=== PATIENT | male | born 1945 | race Two or more races ===

== ENCOUNTER 2023-07-04 10:29 | Outpatient (REF) | payer OTHER, SELFPAY ==
[2023-07-04 14:17] LABS: MANUAL DIFF FLAG NO
[2023-07-04 14:27] LABS: Basophils Percent Auto 0.6 % (0-2); Eosinophils Absolute Auto 0.1 X10*3/uL (0.0-0.4); Hematocrit 40.7 % (42.0-52.0); Hemoglobin 13.3 g/dl (14.0-18.0); Imm Gran Abs Auto 0.02 X10*3/uL (0.00-0.03); Imm Gran Pct Auto 0.3 % (0.0-0.4); Lymphocytes Percent Auto 31.2 % (20-40); Mean Corpuscular HGB Conc 32.7 g/dl (31.0-36.0); Mean Corpuscular Hemoglobin 27.5 pg (27.0-33.0); Mean Corpuscular Volume 84.1 fL (80.0-98.0); Mean Platelet Volume 13.8 fL (9.4-12.4); Monocytes Absolute Auto 0.7 X10*3/uL (0.1-1.2); Monocytes Percent Auto 10.7 % (2-11); Neutrophils Absolute Auto 3.6 x10*3/uL (2.0-8.3); Neutrophils Percent Auto 55.2 % (45-73); Platelet Count 172 X10*3/uL (160-400); Red Blood Count 4.84 X10*6/uL (4.60-5.80); Red Cell Distribution Width 13.8 % (11.0-16.0); White Blood Count 6.5 X10*3/uL (4.8-10.8)
[2023-07-04 14:37] LABS: Creatinine Urine 224.84 mg/dL; Microalbum/Creatinine Ratio Ur 7.5 ug/mg cr
[2023-07-04 14:45] LABS: Alanine Aminotransferase 17 U/L (0-40); Albumin Level 4.4 g/dL (3.5-5.0); Alkaline Phosphatase 53 U/L (39-117); Anion Gap 12 (12-20); Aspartate Amino Transferase 23 U/L (5-37); Bilirubin Total 0.5 mg/dL (0.0-1.0); Blood Urea Nitrogen 12 mg/dL (9-16); Calcium 9.9 mg/dL (8.4-10.2); Carbon Dioxide 30 mmol/L (22-29); Chloride 102 mmol/L (96-108); Estimated Glomerular Filt Rate > 60; Glucose Fasting 127 mg/dL (60-99); Potassium 4.2 mmol/L (3.3-5.1); Sodium 140 mmol/L (135-145); Total Protein 8.3 g/dL (6.5-8.0)
== END 2023-07-04 10:30 | disposition home or self-care (01) ==
LOC: HO.CHCLDS 10:29
PROVIDERS: Visit Provider Internal Medicine
DX: E11.65 Type 2 diabetes mellitus with hyperglycemia (principal)
CPT/HCPCS: 36415; 80053; 82043; 84443; 85025

== ENCOUNTER 2024-01-23 13:18 | Outpatient (REF) | payer OTHER, SELFPAY ==
[2024-01-23 14:42] LABS: Microalbum/Creatinine Ratio Ur 12.7 ug/mg cr (<30)
[2024-01-23 14:56] LABS: Alanine Aminotransferase 16 U/L (0-40); Albumin Level 4.3 g/dL (3.5-5.0); Alkaline Phosphatase 57 U/L (39-117); Anion Gap 12 (12-20); Aspartate Amino Transferase 22 U/L (5-37); Bilirubin Total 0.4 mg/dL (0.0-1.0); Blood Urea Nitrogen 12 mg/dL (9-16); Calcium 9.4 mg/dL (8.4-10.2); Carbon Dioxide 28 mmol/L (22-29); Chloride 99 mmol/L (96-108); Cholesterol 174 mg/dL (<200); Estimated Glomerular Filt Rate > 60; Glucose Random 197 mg/dL (60-115); HDL Cholesterol 33 mg/dL (>40); LDL Cholesterol Calculated 69 mg/dL (<100); Potassium 3.5 mmol/L (3.3-5.1); Sodium 135 mmol/L (135-145); Total Protein 8.2 g/dL (6.5-8.0); Triglycerides 364 mg/dL (<150)
[2024-01-23 15:04] LABS: TSH reflex Free T4 1.46 uIU/mL (0.32-4.0)
[2024-01-24 08:57] LABS: ~HepC Num1 0.09 S/CO (0.00-0.79); ~Hepatitis C Antibody Nonreactive (Nonreactive)
== END 2024-01-23 13:19 | disposition home or self-care (01) ==
LOC: HO.CHCLDS 13:18
PROVIDERS: Visit Provider Internal Medicine
DX: I10 Essential (primary) hypertension (principal); E11.65 Type 2 diabetes mellitus with hyperglycemia
CPT/HCPCS: 36415; 80053; 80061; 82043; 82570; 84443; 86803

== ENCOUNTER 2024-08-19 11:27 | Outpatient (REF) | payer OTHER, SELFPAY ==
[2024-08-19 14:50] LABS: Appearance Urine Clear; Color Urine Yellow; Glucose Urine UA >=1000 mg/dL (Negative); Leukocyte Esterase Urine Negative (Negative); Nitrite Urine Negative (Negative); Specific Gravity - Urine 1.025 (1.005-1.025); UMIC TRIGGER UA YES; Urine Blood Negative (Negative); Urine Ketones Negative (Negative); Urine Protein Negative (Neg-Trace)
[2024-08-19 14:53] LABS: Bacteria Urine None Seen (None Seen); Hyaline Casts Urine 0-2 /LPF (0-2); RBC Urine 0-2 /HPF (0-2); Squamous Epithelial Cell Urine 0-2 /HPF (0-2); WBC Urine 0-5 /HPF (0-5)
[2024-08-19 15:03] LABS: Alanine Aminotransferase 15 U/L (0-40); Albumin Level 4.2 g/dL (3.5-5.0); Alkaline Phosphatase 56 U/L (39-117); Anion Gap 12 (12-20); Aspartate Amino Transferase 18 U/L (5-37); Bilirubin Total 0.4 mg/dL (0.0-1.0); Blood Urea Nitrogen 11 mg/dL (9-16); Calcium 9.3 mg/dL (8.4-10.2); Carbon Dioxide 27 mmol/L (22-29); Chloride 104 mmol/L (96-108); Estimated Glomerular Filt Rate > 60; Glucose Random 203 mg/dL (60-115); Potassium 4.1 mmol/L (3.3-5.1); Sodium 139 mmol/L (135-145); Total Protein 7.9 g/dL (6.5-8.0)
== END 2024-08-19 11:28 | disposition home or self-care (01) ==
LOC: HO.CHCLDS 11:27
PROVIDERS: Visit Provider Internal Medicine
DX: R29.898 Other symptoms and signs involving the musculoskeletal system (principal); M79.89 Other specified soft tissue disorders
CPT/HCPCS: 36415; 80053; 81001; 83735

== ENCOUNTER 2024-11-23 10:16 | Outpatient (REF) | payer OTHER, SELFPAY ==
[2024-11-23 16:01] LABS: Alanine Aminotransferase 22 U/L (0-40); Albumin Level 4.3 g/dL (3.5-5.0); Anion Gap 13 (12-20); Aspartate Amino Transferase 33 U/L (5-37); Bilirubin Total 0.4 mg/dL (0.0-1.0); Blood Urea Nitrogen 15 mg/dL (9-16); Calcium 9.8 mg/dL (8.4-10.2); Carbon Dioxide 28 mmol/L (22-29); Chloride 101 mmol/L (96-108); Cholesterol 209 mg/dL (<200); Estimated Glomerular Filt Rate > 60; Glucose Random 191 mg/dL (60-115); HDL Cholesterol 36 mg/dL (>40); LDL Cholesterol Calculated 119 mg/dL (<100); Potassium 4.1 mmol/L (3.3-5.1); Sodium 138 mmol/L (135-145); TSH reflex Free T4 3.01 uIU/mL (0.32-4.0); Total Protein 8.5 g/dL (6.5-8.0); Triglycerides 270 mg/dL (<150)
[2024-11-23 16:19] LABS: Alkaline Phosphatase 58 U/L (39-117)
== END 2024-11-23 10:17 | disposition home or self-care (01) ==
LOC: HO.CHCLDS 10:16
PROVIDERS: Visit Provider Internal Medicine
DX: E78.1 Pure hyperglyceridemia (principal); E11.65 Type 2 diabetes mellitus with hyperglycemia; I10 Essential (primary) hypertension
CPT/HCPCS: 36415; 80053; 80061; 84443

== ENCOUNTER 2025-01-26 13:16 | Outpatient (REF) | payer OTHER, SELFPAY ==
[2025-01-26 14:44] LABS: Alanine Aminotransferase 21 U/L (0-40); Albumin Level 4.1 g/dL (3.5-5.0); Alkaline Phosphatase 49 U/L (39-117); Aspartate Amino Transferase 36 U/L (5-37); Bilirubin Direct 0.1 mg/dL (0.0-0.5); Bilirubin Total 0.4 mg/dL (0.0-1.0); Cholesterol 139 mg/dL (<200); HDL Cholesterol 32 mg/dL (>40); LDL Cholesterol Calculated 66 mg/dL (<100); Total Protein 8.3 g/dL (6.5-8.0); Triglycerides 206 mg/dL (<150)
[2025-01-26 15:39] LABS: Creatinine Urine 148.99 mg/dL; Microalbum/Creatinine Ratio Ur 7.3 ug/mg cr (<30)
--- OUTSIDE RECORDS SUMMARY | 2025-01-26 16:04 | XMS_ITS | Encounter Summary ---
Author Organization [employer] Address [address] [facility] 7 [place] [address] Care Team Providers Care Oracle Manufacturing Consultant Name Role Phone Fide Watson MD Primary Care Provider [phone] Adriana Allen PharmD Unavailable [phone] Reason for Visit * Reason Comments Med Refill Encounter Details Date Type Department Care Team ([facility] st Contact Info) Description 12/30/2024 Refill [facility] [address] [place] [address] Fide Watson MD [address] [place] [address] Social History Tobacco Use Types Packs/Day Years Used Date Smoking Tobacco: Never Passive Smoke Exposure: Never Smokeless Tobacco: Never Alcohol Use Standard Drinks/Week Comments Never 0 (1 standard drink = 0.6 oz pur e alcohol) Depression Answer Date Recorded Patient Health Questionnaire-9 Score 0 11/23/2024 Patient Health Questionnaire-9 Score 0 11/23/2024 Last PHQ-9: Questionnaire Data Not on file 0 11/23/2024 Housing Stability Answer Date Recorded What is your housing situation today? I have rocky pinon 11/13/[address] you li ve. Do you have problems with any of the following? None of the above 11/13/2024 Food Insecurity Answer Date Recorded Within the past 12 months, y ou worried that your food would run out before you got money to buy more: Never True 11/13/2024 Within the past 12 months,th e food you bought just didn't last and you didn't have enough money to get more: Never True Transportation Answer Date Recorded In the past 12 months, has l ack of transportation kept you from medical appts, meetings, work or from getting things needed for daily living? No 11/13/2024 Utilities Answer Date Recorded In the past 12 months, has t he electric, gas, oil or water company threatened to shut off services in your home? No 11/13/2024 Depression Answer Date Recorded Patient Health Questionnaire-2 Score 0 11/23/2024 Internet Access Answer Date Recorded Internet Access Q1 Yes 11/13/2024 Internet Access Q2 Not on file 11/13/2024 Sex and Gender Information Value Date Recorded Sex Assigned at Male 09/17/2022 10:37 AM EDT Legal Sex Male 10:37 AM EDT Gender Identity Choose not to disclose 10:37 AM EDT Sexual Orientation Choose not to disclose 2021 10:37 AM EDT documented as of this encounter Plan of Treatment Upcoming Encounters Date Type Department Care Team (Late st Contact Info) Description 02/18/2025 11:00 AM EDT Medication Management [facility] MED & PEDS [address] [place] [address] Adriana Allen PharmD [address] [place] [address] 03/29/2025 11:30 AM EDT Office Visit [facility] [address] [place] [address] Fide Watson MD [address] [place] [address] documented as of this encounter Visit Diagnoses Not on filedocumented in this encounter Additional Health Concerns Assessment Noted Time PHQ-9 Depression Total Score: 0 11/23/19 25 9:24 AM EST documented as of this encounter Care Teams Oracle Manufacturing Consultant Relationship Specialty Start Date End Date Fide Watson MD [address] [place] [address] PCP - General Internal Medicine 04/27/20 Adriana Allen PharmD [address] [place] [address] Pharmacist Internal Medicine 12/17/24 documented as of this encounter
--- OUTSIDE RECORDS SUMMARY | 2025-01-26 16:04 | XMS_ITS | Encounter Summary ---
Author Organization [employer] Address 75 [facility] 7 [place] [address] Care Team Providers Care Inspector Machine Cut Glass Name Role Phone Fide Watson MD Primary Care Provider [phone] Adriana Allen PharmD Unavailable [phone] Encounter Details Date Type Department Care Team (Late st Contact Info) Description 01/26/2025 Orders Only [facility] MED & PEDS [address] [place], [place] [phone] Fide Watson MD 505 [place] [address] Social History Tobacco Use Types Packs/Day Years [...] Upcoming Encounters Date Type Department Care Team ([facility] st Contact Info) Description 02/18/2025 11:00 AM EDT Medication Management [facility] MED & PEDS [address] [place] [address] Adriana Allen PharmD [address] [place] [address] 03/29/2025 11:30 AM EDT Office Visit [facility] [address] [place] [address] Fide Watson MD [address] [place] [address] documented as of this encounter Procedures Procedure Name Priority Date/Time Associated Diagnosis Comments ALBUMIN, RANDOM URINE W/CREATININE Routine 01/26/2025 1:20 PM EDT HEPATIC FUNCTION PANEL Routine 01/26/2025 1:17 PM EDT LIPID PANEL, STANDARD Routine 01/26/2025 1:17 PM EDT documented in this encounter Results * Albumin, Random Urine W/Creatinine (01/26/2025 1:20 PM EDT) Creatinine, Urine 148.99 mg/dL [facility] Microalbumin Urine 11.0 mg/L [facility] Microalbum Creatinine Ratio Ur 7.3 <30 ug/mg cr [facility] Comment:Albumin/Creatinine R atio Reference Ranges: Normal: < 30 ug/mg creatinine Microalbuminuria: 30 - 300 ug/mg creatinineClinical Albuminuria: > 300 ug/mg creatinine 01/26/2025 1:20 PM EDT 01/26/2025 2:10 PM EDT us Fide Watson MD LAB URINE ORDERABLES Final Result [facility] [address] [place] [phone] * (ABNORMAL) Lipid Panel, Standard (01/26/2025 1:17 PM EDT) Triglycerides 206(H) <150 mg/dL [facility] Comment:Desirable Triglyceri de: less than 150 mg/dLBorderline High Triglyceride 150-199 mg/dLHigh Triglyceride: 200-499 mg/dLVery High Triglyceride: greater than or equal to 5OO mg/dL Cholesterol 139 <200 mg/dL [facility] Comment:Desirable Cholestero l: less than 200 mg/dLBorderline High Cholesterol: 200-239 mg/dLHigh Cholesterol: greater than 239 mg/dL LDL Cholesterol Calculated 66 <100 mg/dL [facility] Comment:Desirable LDL: less than 100 mg/dLNear Optimal/Above Optimal LDL: 110- 129 mg/dLBorderline High LDL: 130-159 mg/dLHigh LDL: 160-189 mg/dLVery High LDL: greater than or equal to 190 mg/dL HDL Cholesterol 32(L) >40 mg/dL [facility] Comment:Desirable HDL: great er than 40 mg/dL Note: This HDL assay may give artificially low results in patients with liver disease. 01/26/2025 1:17 PM EDT 01/26/2025 2:07 PM EDT us Fide Watson MD LAB BLOOD ORDERABLES Final Result Performing Organization Address [facility] Co de Phone Number [facility] [address] [place] [phone] [phone] * (ABNORMAL) Hepatic Function Panel (01/26/2025 1:17 PM EDT) Bilirubin, Total 0.4 0.0 - 1.0 mg/dL [facility] Bilirubin, Direct 0.1 0.0 - 0.5 mg/dL [facility] Aspartate Amino Transferase 36 5 - 37 U/L [facility] Alanine Aminotransferase 21 0 - 40 U/L [facility] Total Protein 8.3(H) 6.5 - 8.0 g/dL [facility] Albumin Level 4.1 3.5 - 5.0 g/dL [facility] Alkaline Phosphatase 49 39 - 117 U/L [facility] 01/26/2025 1:17 PM EDT 01/26/2025 2:07 PM EDT us Fide Watson MD LAB BLOOD ORDERABLES Final Result Performing Organization Address [facility] Co de Phone Number [facility] [address] [place] [phone] documented in this encounter Visit Diagnoses Not on filedocumented in this encounter Additional Health Concerns Assessment Noted Time PHQ-9 Depression Total Score: 0 11/23/19 25 9:24 AM EST documented as of this encounter Care Teams Inspector Machine Cut Glass Relationship Specialty Start Date End Date Fide Watson MD [address] [place] [address] PCP - General Internal Medicine 04/27/20 Adriana Allen PharmD [address] [place] [address] Pharmacist Internal Medicine 12/17/24 documented as of this encounter
--- OUTSIDE RECORDS SUMMARY | 2025-01-26 16:04 | XMS_ITS | Encounter Summary ---
Author Organization [employer] Address [address] [place] [address] 7 [place] [address] Care Team Providers Care Outpatient Therapist Name Role Phone Fide Watson MD Primary Care Provider [phone] Adriana Allen PharmD Unavailable [phone] Reason for Referral * Imaging (Routine) - Closed Specialty Diagnoses / Procedures Referred By Contkeli cummins Referred To Contact Radiology Diagnoses Right upper quadrant pain Procedures CT Abdomen w/ and w/o Contrast Fide Watson MD [address] [place] [phone] Phone: tel: fax: [facility] Referral ID Status Reason Start Date Expiration Date Visits Re quested Visits Authorized [id number] Closed 11/30/2024 11/30/2025 1 1 Encounter Details Date Type Department Care Team ([facility] st Contact Info) Description 11/23/2024 Orders Only [facility] MED & PEDS [address] [place] [address] Fide Watson MD [address] [place] [address] Right upper quadrant pain (Primary Dx) Social History Tobacco Use Types Packs/Day Years [...] Upcoming Encounters Date Type Department Care Team ([facility] st Contact Info) Description 02/18/2025 11:00 AM EDT Medication Management [facility] MED & PEDS [address] [place] [address] Adriana Allen, PharmD [address] [place] [address] 03/29/2025 11:30 AM EDT Office Visit [facility] MED & PEDS [address] [place] [address] Fide Watson MD [address] [place] [address] documented as of this encounter Procedures Procedure Name Priority Date/Time Associated Diagnosis Comments CT ABDOMEN W AND WO CONTRAST Routine 12/08/2024 Right upper quadrant pain documented in this encounter Results * CT Abdomen w/ and w/o Contrast (12/08/2024) Anatomical Region Laterality Modality Body, Abdomen Computed Tomogra phy Fide Watson MD IMG CT PROCEDURES Final Res ult documented in this encounter Visit Diagnoses Diagnosis Right upper quadrant pain- Primary Abdominal pain, right upper quadrant documented in this encounter Additional Health Concerns Assessment Noted Time PHQ-9 Depression Total Score: 0 11/23/19 9:24 AM EST documented as of this encounter Care Teams Outpatient Therapist Relationship Specialty Start Date End Date Fide Watson MD [address] [place] [phone] PCP - General Internal Medicine 04/27/20 Adriana Allen PharmD [address] [place] [address] Pharmacist Internal Medicine 12/17/24 documented as of this encounter
--- OUTSIDE RECORDS SUMMARY | 2025-01-26 16:04 | XMS_ITS | Encounter Summary ---
Author Organization [employer] Address [address] [facility] 7t [place] [address] Care Team Providers Care Monorail Helper Name Role Phone Fide Watson MD Primary Care Provider [phone] Adriana Allen PharmD Unavailable [phone] Reason for Visit * Reason Onset Date Comments Prior Authorization 01/07/2025 Encounter Details Date Type Department Care Team ([facility] st Contact Info) Description 01/07/2025 Telephone [facility] MED & PEDS [address] [place], [place] [phone] Adriana Allen, PharmD [address] [place] [address] Prior Authorization Social History Tobacco Use Types Packs/Day Years [...] AM EDT documented as of this encounter Miscellaneous Notes * Telephone Encounter - Adriana Allen PharmD - 01/07/2025 10:17 AM EST Tier exception for Ozempic denied by [facility]. Drug is approved, but at a tier 3 copayment. Patient unable to afford. Will explore other options for diabetes management. Next [facility] visit 01/21. documented in this encounter Plan of Treatment Upcoming Encounters Date Type Department Care Team (Late st Contact Info) Description 02/18/2025 11:00 AM EDT Medication Management [facility] MED & PEDS [address] [place] [address] Adriana Allen PharmD [address] [place] [address] 03/29/2025 11:30 AM EDT Office Visit [facility] MED & PED[facility] [address] [place] [address] Fide Watson MD [address] [place] [address] documented as of this encounter Visit Diagnoses Not on filedocumented in this encounter Additional Health Concerns Assessment Noted Time PHQ-9 Depression Total Score: 0 11/23/19 9:24 AM EST documented as of this encounter Care Teams Monorail Helper Relationship Specialty Start Date End Date Fide Watson MD [address] [place] [address] PCP - General Internal Medicine 04/27/20 Adriana Allen PharmD [address] [place] [phone] Pharmacist Internal Medicine 12/17/24 documented as of this encounter
--- OUTSIDE RECORDS SUMMARY | 2025-01-26 16:04 | XMS_ITS | Encounter Summary ---
Author Organization [employer] Address 75 [facility] 7t [place] [address] Care Team Providers Care Senior Environmental Practice Leader Name Role Phone Fide Watson MD Primary Care Provider [phone] Adriana Allen PharmD Unavailable [phone] Encounter Details Date Type Department Care Team (Latest Contact Info) Description 01/05/2025 Travel Social History Tobacco Use Types Packs/Day Years [...] 11:00 AM EDT Medication Management [facility] MED & PEDS [address] [place] [address] Adriana Allen PharmD [address] [place] [address] 03/29/2025 11:30 AM EDT Office Visit [facility] MED & PEDS [address] [place] [address] Fide Watson MD [address] [place] [address] documented as of this encounter Visit Diagnoses Not on filedocumented in this encounter Additional Health Concerns Assessment Noted Time PHQ-9 Depression Total Score: 0 11/23/19 25 9:24 AM EST documented as of this encounter Care Teams Senior Environmental Practice Leader Relationship Specialty Start Date End Date Fide Watson MD [address] [place] [address] PCP - General Internal Medicine 04/27/20 Adriana Allen PharmD [address] [place] [address] Pharmacist Internal Medicine 12/17/24 documented as of this encounter
--- OUTSIDE RECORDS SUMMARY | 2025-01-26 16:04 | XMS_ITS | Encounter Summary ---
Author Organization [employer] Address [address] [facility] 7 [place] [address] Care Team Providers Care Associate Professor Of Art Name Role Phone Fide Watson MD Primary Care Provider [phone] Adriana Allen PharmD Unavailable [phone] Encounter Details Date Type Department Care Team (Late st Contact Info) Description 01/05/2025 1:30 PM EST Office Visit [facility] MED & PEDS [address] [place], [place] [phone] Fide Watson MD [address] [place] [address] Type 2 diabetes mellitus with hyperglycemia, without long-term current use of insulin (CMS/HCC) (Primary Dx); Dietary counseling; Exercise counseling; Class 2 severe obesity due to excess calories with serious comorbidity and body mass index (BMI) of 39.0 to 39.9 in adult (CMS/HCC); Right upper quadrant pain; Primary hypertension Social History Tobacco Use Types Packs/Day Years [...] AM EDT documented as of this encounter Last Filed Vital Signs Vital Sign Reading Time Taken Comments Blood Pressure 140/84 01/05/2025 1:13 PM EST Pulse 77 01/05/2025 1:13 PM EST Temperature 36.8 ??C (98.2 ??F) 01/05/2025 1:13 PM ES T Respiratory Rate 20 01/05/2025 1:13 PM EST Oxygen Saturation 98% 01/05/2025 1:13 PM EST Inhaled Oxygen Concentration - - Weight 102 kg (225 lb 6.4 oz) 01/05/2025 1:13 PM EST Height 161 cm (5' 3.39 ) 01/05/2025 1:13 PM EST Body Mass Index 39.44 01/05/2025 1:13 PM EST documented in this encounter Progress Notes * Fide Watson MD - 01/05/2025 1:30 PM EST Subjective Patient ID: Jean Carlos Barrios is a 79 y.o. adult who presents for No chief complaint on file.. HPI Follow up of right upper quadrant abdominal pain x over 3 months. US of the abdomen done 1 month ago shows Hepatic steatosis. The abdominal pain is resolving. Very mild now. H/o uncontrolled DM. Ozempic increased to 0.5 mg weekly 2 weeks ago. Pt cannot afford the 400 $ [employer] pay. H/o cough. Lisinopril discontinued. Pt started on Losartan w/ improvement. He has less cough now. Patient Active Problem List Diagnosis Benign prostatic hyperplasia Gastroesophageal reflux disease Hypertensive disorder Type 2 diabetes mellitus (CMS/HCC) Preop examination Tubular adenoma of colon Current Outpatient Medications on File Prior to Visit Medication Sig Dispense Refill ammonium lactate (Lac-Hydrin) 12 % lotion Apply topically if needed for dry skin. 225 g 11 atorvastatin (Lipitor) 20 MG tablet Take 1 tablet (20 mg) by mouth Once per day. 100 tablet 3 Blood Glucose Monitoring Suppl (dot429) w/Device kit 1 each Once per day. 1 kit 0 Diclofenac Sodium 1 % gel Apply tid prn pain 100 g 3 doxazosin (Cardura) 1 MG tablet TAKE 1 TABLET BY MOUTH EVERY DAY 100 tablet 2 fluticasone (Flonase) 50 MCG/ACT nasal spray USE 1 ROCIADA EN CADA FOSA NASAL CADA ELBERT 16 g 0 glimepiride (Amaryl) 2 MG tablet TOME 1 TABLETA POR LA BOCA DOS VECES AL ELBERT 200 tablet 2 glucose blood (GoEuro VerCartera Commerce) test strip USE TO TEST BLOOD SUGAR TWICE A DAY 200 strip 2 guaiFENesin (Mucinex) 600 MG 12 hr tablet Take 2 tablets (1,200 mg) by mouth 2 times daily. Do not crush, chew, or split. 120 tablet 11 hydroCHLOROthiazide (HYDRODiuril) 25 MG tablet TAKE 1 TABLET BY MOUTH EVERY DAY 100 tablet 2 Lancets (GoEuro Delica Plus [id number]) misc USE TO TEST BLOOD SUGAR TWICE A DAY 200 each 2 lidocaine (Xylocaine) 5 % ointment To apply to the affected area 2 times a day 30 g 3 losartan (Cozaar) 50 MG tablet Take 1 tablet (50 mg) by mouth Once per day. Lisinopril discontinuedb/c of a cough 30 tablet 11 metFORMIN (Glucophage) 1000 MG tablet TAKE 1 TABLET BY MOUTH TWICE A DAY 200 tablet 2 methocarbamol (Robaxin) 750 MG tablet Take 1 tab orally bid prn back pain 20 tablet 0 metoprolol tartrate (Lopressor) 25 MG tablet Take 1 tablet (25 mg) by mouth 2 times daily. 200 tablet 2 pantoprazole (ProtoNix) 40 MG EC tablet Take 1 tablet (40 mg) by mouth before breakfast. Do not crush, chew, or split. 100 tablet 2 semaglutide (Ozempic) 2 MG/1.5ML solution pen-injector Inject 0.25mg weekly x 4 weeks, then increase to 0.5mg weekly if tolerated 3 mL 0 spironolactone (Aldactone) 25 MG tablet Take 1 tablet (25 mg) by mouth Once per day. 30 tablet 11 timolol (Timoptic) 0.25 % ophthalmic solution No current facility-administered medications on file prior to visit. Allergies Allergen Reactions Lisinopril Cough Review of Systems Constitutional: Negative for appetite change, chills and diaphoresis. Respiratory: Negative for cough, choking and chest tightness. Cardiovascular: Negative for leg swelling. Musculoskeletal: Negative for gait problem, joint swelling and myalgias. Objective BP (!) 140/84 (BP Location: Right arm, Patient Position: Sitting, BP Cuff Size: Adult) Pulse 77 Temp 98.2 ??F (36.8 ??C) (Oral) Resp 20 Ht 5' 3.39 (1.61 m) Wt 225 lb 6.4 oz (102 kg) [id number]% BMI 39.44 kg/m?? Physical Exam Constitutional: General: Jean Carlos is not in acute distress. Appearance: Normal appearance. Jean Carols is obese. Jean Carlos is not ill- appearing, toxic-appearing or diaphoretic. Cardiovascular: Rate and Rhythm: Normal rate. Pulmonary: Effort: Pulmonary effort is normal. No respiratory distress. Breath sounds: No stridor. No wheezing or rhonchi. Neurological: General: No focal deficit present. Mental Status: Jean Carlos is alert. Assessment/Plan Diagnoses and all orders for this visit: Type 2 diabetes mellitus with hyperglycemia, without long-term current use of insulin ([facility]) Comments: Low carb diet Start an exercise program. goal: 150 minutes a week. Dietary counseling Exercise counseling Class 2 severe obesity due to excess calories with serious comorbidity and body mass index (BMI) of39.0 to 39.9 in adult ([facility]) Dietary Recommendations: Fruits, vegetables, whole grains, protein foods, and fat-free or low-fat dairy products are healthychoices. Eat different types of protein foods in your diet. This can include seafood, lean meats, poultry, beans, peas, lentils, nuts, seeds, soy products, and eggs. Limit foods and beverages higher in added sugars, saturated fat, and sodium. Exercise Recommendations: At least 150 minutes of moderate-intensity physical activity per week, or an equivalent combinationof moderate- and vigorous-intensity activity Right upper quadrant pain Comments: Resolving Continue w/ methocarbamol as needed. Primary hypertension Comments: No change RTC in 3 months. documented in this encounter Plan of Treatment Upcoming Encounters Date Type Department Care Team (Late st Contact Info) Description 02/18/2025 11:00 AM EDT Medication Management [facility] MED & PEDS [address] [place] [address] Adriana Allen PharmD [address] [place] [address] 03/29/2025 11:30 AM EDT Office Visit [facility] MED & PEDS [address] [place] [address] Fide Watson MD [address] [place] [address] documented as of this encounter Procedures Procedure Name Priority Date/Time Associated Diagnosis Comments POCT GLUCOSE Routine 01/05/2025 1:45 PM EST Type 2 diabetes mellitus with hyperglycemia, without long-term current use of insulin ([facility]) documented in this encounter Results * POCT Glucose (01/05/2025 1:45 PM EST) [facility] Signature Glucose Blood, POC 135 60 - 200 mg/dL QC Media Lot # [id number] Lot# Expiration Date [id number] Blood Capillary blood specimen / Unknown 01/05/2025 1:45 PM EST us Fide Watson MD POINT OF CARE TEST ENTER/ED IT ORDERABLES Final Result documented in this encounter Visit Diagnoses Diagnosis Type 2 diabetes mellitus with hyperglycemia, without long-term current use of insulin ([facility])- Primary Dietary counseling Dietary surveillance and counseling Exercise counseling Class 2 severe obesity due to excess calories with serious comorbidity and body mass index (BMI) of 39.0 to 39.9 in adult ([facility]) Right upper quadrant pain Abdominal pain, right upper quadrant Primary hypertension Unspecified essential hypertension documented in this encounter Additional Health Concerns Assessment Noted Time PHQ-9 Depression Total Score: 0 11/23/19 25 9:24 AM EST documented as of this encounter Care Teams Associate Professor Of Art Relationship Specialty Start Date End Date Fide Watson MD [address] [place] [address] PCP - General Internal Medicine 04/27/20 Adriana Allen PharmD [address] [place] [address] Pharmacist Internal Medicine 12/17/24 documented as of this encounter
--- OUTSIDE RECORDS SUMMARY | 2025-01-26 16:05 | XMS_ITS | Encounter Summary ---
Author Organization [employer] Address [address] [facility] 7 [place] [address] Care Team Providers Care Monitor Technician Name Role Phone Fide Watson MD Primary Care Provider [phone] Adriana Allen PharmD Unavailable [phone] Reason for Visit * Reason Onset Date Comments Pre Op 03/30/2024 Encounter Details Date Type Department Care Team ([facility] st Contact Info) Description 03/30/2024 Telephone [facility] MED[facility]INE [address] [place] [address] Fide Watson MD [address] [place] [address] Pre Op Social History Tobacco Use Types Packs/Day Years Used Date Smoking Tobacco: Never Passive Smoke Exposure: Never Smokeless Tobacco: Never Alcohol Use Standard Drinks/Week Comments Never 0 (1 standard drink = 0.6 oz pur e alcohol) Depression Answer Date Recorded Patient Health Questionnaire-9 Score 0 07/04/2023 Housing Stability Answer Date Recorded What is your housing situation today? I have rocky pin[place] 09/03/[address] you li ve. Do you have problems with any of the following? None of the above 09/03/2023 Food Insecurity Answer Date Recorded Within the past 12 months, y ou worried that your food would run out before you got money to buy more: Never True 09/03/2023 Within the past 12 months,th e food you bought just didn't last and you didn't have enough money to get more: Never True Transportation Answer Date Recorded In the past 12 months, has l ack of transportation kept you from medical appts, meetings, work or from getting things needed for daily living? No 09/03/2023 Utilities Answer Date Recorded In the past 12 months, has t he electric, gas, oil or water company threatened to shut off services in your home? No 09/03/2023 Depression Answer Date Recorded Patient Health Questionnaire-2 Score 0 07/04/2023 Sex and Gender Information Value Date Recorded Sex Assigned at Male 09/17/2022 10:37 AM EDT Legal Sex Male 10:37 AM EDT Gender Identity Choose not to disclose 10:37 AM EDT Sexual Orientation Choose not to disclose 2021 10:37 AM EDT documented as of this encounter Miscellaneous Notes * Telephone Encounter - Yecenia Vega RN - 04/01/2024 9:23 AM EDT Placed call to pt regarding message below. Pt states surgery is on the same day as preop appt. Apptr/s for 04/20/24. Pt agrees with plan. * Telephone Encounter - Yoandy Vasquez - 03/30/2024 10:44 AM EDT Tc from pt requesting call back for clarification on Pre Op appt for 05/11. Pt stated surgery will be on 05/10 and that he dropped of a form at [facility] with all information on appt and stated he also called to cancel appt due to surgery being day prior to. Please contact pt at [phone]. documented in this encounter Plan of Treatment Upcoming Encounters Date Type Department Care Team ([facility] st Contact Info) Description 02/18/2025 11:00 AM EDT Medication Management [facility] MED & PEDS [address] [place] [address] Adriana Allen, PharmD [address] [place] [address] 03/29/2025 11:30 AM EDT Office Visit [facility] MED & PEDS [address] [place] [address] Fide Watson MD [address] [place] [address] documented as of this encounter Visit Diagnoses Not on filedocumented in this encounter Additional Health Concerns Assessment Noted Time PHQ-9 Depression Total Score: 0 07/04/20 23 9:57 AM EDT documented as of this encounter Care Teams Monitor Technician Relationship Specialty Start Date End Date Fide Watson MD [address] [place] [address] PCP - General Internal Medicine 04/27/20 Adriana Allen PharmD [address] [place] [address] Pharmacist Internal Medicine 12/17/24 documented as of this encounter
--- OUTSIDE RECORDS SUMMARY | 2025-01-26 16:05 | XMS_ITS | Clinical Summary ---
Author Organization [employer] Address [address] [facility] 7t [place] [address] Care Team Providers Care Pbx Technician Name Role Phone Fide Watson MD Primary Care Provider [phone] Adriana Allen PharmD Unavailable [phone] Allergies Active Allergy Reactions Criticality Noted Date Comments Lisinopril Cough 11/23/2024 Medications timolol (Timoptic) 0.25 % ophthalmic solution 023 Active fluticasone (Flonase) 50 MCG/ACT nasal spray USE 1 ROCIADA EN CADA FOSA NASAL CADA ELBERT 16 g 023 Active Diclofenac Sodium 1 % gel Apply tid prn pain 100 g 3 023 Active metoprolol tartrate (Lopressor) 25 MG tabletIndicatio ns:Essential hypertension Take 1 tablet (25 mg) by mouth 2 times daily. 200 tablet 2 024 Active glimepiride (Amaryl) 2 MG tablet TOME 1 TABLETA POR LA BOCA DOS VECES AL ELBERT 200 tablet 2 024 Active Lancets (OneTouch Delica Plus [id number]) miscIndications :Type 2 diabetes mellitus with hyperglycemia, without long-term current use of insulin ([facility]) USE TO TEST BLOOD SUGAR TWICE A DAY 200 each 2 024 Active guaiFENesin (Mucinex) 600 MG 12 hr tabletIndicatio ns:Subacute cough Take 2 tablets (1,200 mg) by mouth 2 times daily. Do not crush, chew, or split. 120 tablet 11 024 2024 Active spironolactone (Aldactone) 25 MG tabletIndicatio ns:Essential hypertension,Pr imary hypertension Take 1 tablet (25 mg) by mouth Once per day. 30 tablet 11 024 2024 Active pantoprazole (ProtoNix) 40 MG EC tabletIndicatio ns:Chronic gastritis without bleeding, unspecified gastritis type,Gastroesop hageal reflux disease without esophagitis Take 1 tablet (40 mg) by mouth before breakfast. Do not crush, chew, or split. 100 tablet 2 Active lidocaine (Xylocaine) 5 % ointmentIndicat ions:Type 2 diabetes mellitus with hyperglycemia, without long-term current use of insulin (CMS/HCC),Pares thesia To apply to the affected area 2 times a day 30 g 3 Active glucose blood (Zoned Nutrition) test stripIndication s:Type 2 diabetes mellitus with hyperglycemia, without long-term current use of insulin (CMS/HCC) USE TO TEST BLOOD SUGAR TWICE A DAY 200 strip 2 Active metFORMIN (Glucophage) 1000 MG tablet TAKE 1 TABLET BY MOUTH TWICE A DAY 200 tablet 2 024 Active ammonium lactate (Lac-Hydrin) 12 % lotionIndicatio ns:Dry skin Apply topically if needed for dry skin. 225 g 025 2025 Active losartan (Cozaar) 50 MG tabletIndicatio ns:Primary hypertension Take 1 tablet (50 mg) by mouth Once per day. Lisinopril discontinued b/c of a cough 30 tablet 11 025 2025 Active methocarbamol (Robaxin) 750 MG tabletIndicatio ns:Right upper quadrant pain Take 1 tab orally bid prn back pain 20 tablet Active Blood Glucose Monitoring Suppl (miLibrisToPro 3 Games Verio) w/Device kitIndications: Type 2 diabetes mellitus with hyperglycemia, without long-term current use of insulin (CMS/HCC) 1 each Once per day. 1 kit Active atorvastatin (Lipitor) 20 MG tabletIndicatio ns:Type 2 diabetes mellitus with hyperglycemia, without long-term current use of insulin (CMS/HCC) Take 1 tablet (20 mg) by mouth Once per day. 100 tablet 3 01/30/2 025 Active hydroCHLOROthia zide (HYDRODiuril) 25 MG tabletIndicatio ns:Essential hypertension TAKE 1 TABLET BY MOUTH EVERY DAY 100 tablet 2 025 Active doxazosin (Cardura) 1 MG tablet TOME 1 TABLETA POR LA BOCA CADA ELBERT 100 tablet 2 025 Active doxazosin (Cardura) 1 MG tablet TAKE 1 TABLET BY MOUTH EVERY DAY 100 tablet 2 024 2024 Discontinued semaglutide (Ozempic) 2 MG/1.5ML solution pen-injectorInd ications:Type 2 diabetes mellitus with hyperglycemia, without long-term current use of insulin ([facility]) Inject 0.25mg weekly x 4 weeks, then increase to 0.5mg weekly if tolerated 3 mL 025 2024 Discontinued(C ost of medication) Active Problems Problem Noted Date Diagnosed Date Preop examination 04/20/2024 Assessment & Plan (04/20/2024 12:49 PM EDT): Patient will undergo cataract surgery Denied chest pain or shortness of breath, physically active Minor procedure, does not need EKG or blood work Mets>4 Patient found with elevated blood pressure today, medication will be added, to be followed in 1 week if at target <140/90 he will be cleared for surgery Hold diabetes medication the night prior to procedure Hold NSAId and natural remedies 5 days prior Benign prostatic hyperplasia 03/06/2023 Gastroesophageal reflux disease 03/06/2023 Hypertensive disorder 03/06/2023 Assessment & Plan (04/20/2024 12:34 PM EDT): Not controlled, will add amlodipine 5mg to current regimen which consist of lisinopril 40mg, hydrochlorothiazide 25mg, and spironolactone 25mg, Patient will be scheduled for a nurse visit next Saturday, he has not been taking bp measurements at home, if bp at target <140/90 he can undergo cataract surgery if not medication would need to be adjusted and reevaluated Type 2 diabetes mellitus 03/06/2023 Tubular adenoma of colon 12/03/2018 Encounters Date Type Department Care Team Description 01/26/2025 Orders Only [facility] & PEDS [address] [place] [address] Fide Watson MD 01/21/2025 10:00 AM EST Telemedicine [facility] MED & PEDS [address] [place] [address] Adriana Allen, PharmD Type 2 diabetes mellitus with hyperglycemia, without long-term current use of insulin (CMS/HCC) (Primary Dx) 01/07/2025 Telephone [facility] [address] [place] [address] Adriana Allen, PharmD Prior Authorization 01/05/2025 1:30 PM EST Office Visit [facility] [address] [place] [address] Fide Watson MD Type 2 diabetes mellitus with hyperglycemia, without long-term current use of insulin (CMS/HCC) (Primary Dx); Dietary counseling; Exercise counseling; Class 2 severe obesity due to excess calories with serious comorbidity and body mass index (BMI) of 39.0 to 39.9 in adult (CMS/HCC); Right upper quadrant pain; Primary hypertension 01/05/2025 Travel 12/30/2024 Refill [facility] DI[facility]ET[facility]/NUTRITION [address] [place] [address] Fide Watson MD 12/24/2024 Telephone [facility] [address] [place] [address] Adriana Allen, PharmD 12/23/2024 Refill [facility] [address] [place] [address] Fide Fry MD Essential hypertension 12/17/2024 Travel 12/11/2024 Telephone [facility] [address] [place] [phone] Laurita Montiel, RN Results 12/01/2024 Telephone [facility] [address] [place] [address] Fide Fry MD Referral 11/27/2024 Telephone [facility] [address] [place] [address] Fide Watson MD Med Refill 11/24/2024 Telephone [facility] [address] [place] [address] Fide Watson MD 11/24/2024 Telephone [facility] [address] [place] [address] Milagros De La Rosa, RN Results 11/23/2024 9:30 AM EST Office Visit [facility] [address] [place] [address] Fide Watson MD Right upper quadrant pain (Primary Dx); Type 2 diabetes mellitus with hyperglycemia, without long-term current use of insulin ([facility]/HCC); Primary hypertension; Dry skin; Subacute cough; Hypertriglyceridemia 11/23/2024 Orders Only [facility] [address] [place] [address] Fide Watson MD Right upper quadrant pain (Primary Dx) 11/23/2024 Travel 11/13/2024 Patient Outreach [facility] [address] [place] [address] Fide Watson MD Pre-visit Planning (SDOH negative, Tobacco screening negative.) 11/12/2024 Refill [facility] [address] [place] [address] Erin Modi FNP Type 2 diabetes mellitus with hyperglycemia, without long-term current use of insulin ([facility]) from Last 3 Months Immunizations Name Administration Dates Next Due Influenza High-dose Quadriva lent Preservative Free 08/03/2023,08/14/2021,08/17/2020 Influenza, High Dose Seasona l, Preservative Free 08/04/2024,08/21/2019,07/30/2018,07/19 Influenza, IIV3, injectable 08/21/2017, 4 Pfizer Covid-19 Vaccine 12+ 08/19/2024 Pneumococcal Conjugate PCV 20 08/19/2024 Pneumococcal Polysaccharide PPSV23 02/04/2020 RSV Bivalent 12/17/2024 Tdap 08/17/2020 Zoster, Recombinant 12/17/2024,02/11/2024 Zoster, live 10/22/2017 Social History Tobacco Use Types Packs/Day Years [...] not to disclose 2021 10:37 AM EDT Last Filed Vital Signs Vital Sign Reading [...] Mass Index 39.44 01/05/2025 1:13 PM EST Plan of Treatment Upcoming Encounters Date Type Department Care Team (Late st Contact Info) Description 02/18/2025 11:00 AM EDT Medication Management [facility] PED[facility] [address] [place] [address] Adriana Allen, PharmD [address] [place] [address] 03/29/2025 11:30 AM EDT Office Visit [facility] MED [facility] PED[facility] [address] [place] [address] Fide Watson MD [address] [place] [address] Health Maintenance Due Date Last Done Comments Dental X-Ray: Bitewings 1946 Dental X-Ray: Full Mouth 1946 Derm Melanoma Skin Check 1946 Eye Exam 02/29/1956 Dental Oral Exam 01/23/2024 07/24/2023 Dental Prophylaxis 01/23/2024 07/24/2023 Diabetes: Hemoglobin A1C 02/21/2025 025, 08/19/2024, 02/06/2024, Additional history exists Diabetes: Foot Exam 08/19/2025 08/19/2024, 11/07/2023, 11/07/2023, Additional history exists Alcohol/Substance Use Screening 11/23/2025 11/23/2024 Depression Screening 11/23/2025 11/23/2024, 11/23/19 25 SDOH Screening 11/23/2025 11/23/2024 Tobacco Screening 01/05/2026 01/05/2025 Diabetes: Urine Protein Screening 01/26/2026 01/26/2025, 01/23/2024, 07/04/2023, Additional history exists Lipid Panel 01/26/2026 01/26/2025, 04/2025, 01/23/2024, Additional history exists DTaP/Tdap/Td Vaccines (2 - Td or Tdap) 08/17/2030 08/17/2020 Hepatitis C Screening Completed 01/23/2024 Influenza Vaccine Completed 08/04/2024, , 08/14/2021, Additional history exists COVID-19 Vaccine Completed 08/19/2024, 09/2021, 12/29/2020 Pneumococcal Vaccine: 50+ Years Completed 08/19/2024, 02/04/2020 RSV Patients and Patients Aged 60 years or older Completed 12/17/2024 Zoster Vaccines Completed 12/17/2024, 01/17, 10/22/2017 HIB Vaccines Aged Out No longer eligi ble based on patient's age to complete this topic HPV Vaccines Aged Out No longer eligi ble based on patient's age to complete this topic Hepatitis A Vaccines Aged Out No long er eligible based on patient's age to complete this topic Hepatitis B Vaccines Aged Out No long er eligible based on patient's age to complete this topic IPV Vaccines Aged Out No longer eligi ble based on patient's age to complete this topic Meningococcal Vaccine Aged Out No steven rita eligible based on patient's age to complete this topic RSV under 20 months Aged Out No longe r eligible based on patient's age to complete this topic Rotavirus Vaccines Aged Out No longer eligible based on patient's age to complete this topic Procedures Procedure Name Priority Date/Time Associated Diagnosis Comments ALBUMIN, RANDOM URINE W/CREATININE Routine 01/26/2025 1:20 PM EDT LIPID PANEL, STANDARD Routine 01/26/2025 1:17 PM EDT HEPATIC FUNCTION PANEL Routine 1:17 PM EDT POCT GLUCOSE Routine 01/05/2025 1:45 PM EST Type 2 diabetes mellitus with hyperglycemia, without long-term current use of insulin (CMS/HCC) CT ABDOMEN W AND WO CONTRAST Routine 12/08/2024 Right upper quadrant pain COMPREHENSIVE METABOLIC PANEL Routine 11/23/2024 10:17 AM EST Type 2 diabetes mellitus with hyperglycemia, without long-term current use of insulin (CMS/HCC) Primary hypertension Hypertriglyceridem ia TSH W/REFLEX TO FT4 Routine 11/23/2024 1 0:17 AM EST Type 2 diabetes mellitus with hyperglycemia, without long-term current use of insulin (CMS/HCC) Primary hypertension Hypertriglyceridem ia LIPID PANEL, STANDARD Routine 11/23/2024 10:17 AM EST Hypertriglyceridem ia POCT GLYCATED HEMOGLOBIN, TOTAL Routine 11/23/2024 9:25 AM EST Type 2 diabetes mellitus with hyperglycemia, without long-term current use of insulin (CMS/HCC) POCT GLUCOSE Routine 11/23/2024 9:25 AM EST Type 2 diabetes mellitus with hyperglycemia, without long-term current use of insulin (CMS/HCC) HEPATITIS C AB W/REFL TO HCV RNA, QN, PCR Routine 01/23/2024 1:20 PM EST Type 2 diabetes mellitus with hyperglycemia, without long-term current use of insulin (CMS/HCC) Full PROPHYLAXIS - ADULT Routine 07/24/2023 10:00 AM EDT PERIODIC ORAL EVALUATION - ESTABLISHED PATIENT Routine 07/24/2023 10:00 AM EDT from Last 3 Months or Most Recently Relevant to Health Maintenance Results * Albumin, Random Urine W/Creatinine (01/26/2025 1:20 PM EDT) Creatinine, Urine 148.99 mg/dL [facility] Microalbumin Urine 11.0 mg/L [facility] Microalbum Creatinine Ratio Ur 7.3 <30 ug/mg cr [facility] Comment:Albumin/Creatinine R atio Reference Ranges: Normal: < 30 ug/mg creatinine Microalbuminuria: 30 - 300 ug/mg creatinineClinical Albuminuria: > 300 ug/mg creatinine 01/26/2025 1:20 PM EDT 01/26/2025 2:10 PM EDT us Fide Watson MD LAB URINE ORDERABLES Final Result Performing Organization Address City/[facility]/ZIP Co de Phone Number [facility] [address] [place] [phone] * (ABNORMAL) Hepatic Function Panel (01/26/2025 1:17 PM EDT) Bilirubin, Total 0.4 0.0 - 1.0 mg/dL [facility] Bilirubin, Direct 0.1 0.0 - 0.5 mg/dL [facility] Aspartate Amino Transferase 36 5 - 37 U/L [facility] Alanine Aminotransferase 21 0 - 40 U/L [facility] Total Protein 8.3(H) 6.5 - 8.0 g/dL [facility] Albumin Level 4.1 3.5 - 5.0 g/dL [facility] Alkaline Phosphatase 49 39 - 117 U/L [facility] 01/26/2025 1:17 PM EDT 01/26/2025 2:07 PM EDT us Fide Watson MD LAB BLOOD ORDERABLES Final Result Performing Organization Address [facility] Co de Phone Number [facility] [address] [place] [phone] * (ABNORMAL) Lipid Panel, Standard (01/26/2025 1:17 PM EDT) Only the most recent of2 resultswithin the time period is included. Triglycerides 206(H) <150 mg/dL [facility] Comment:Desirable Triglyceri de: less than 150 mg/dLBorderline High Triglyceride 150-199 mg/dLHigh Triglyceride: 200-499 mg/dLVery High Triglyceride: greater than or equal to 5OO mg/dL Cholesterol 139 <200 mg/dL [facility] Comment:Desirable Cholestero l: less than 200 mg/dLBorderline High Cholesterol: 200-239 mg/dLHigh Cholesterol: greater than 239 mg/dL LDL Cholesterol Calculated 66 <100 mg/dL [facility] Comment:Desirable LDL: less than 100 mg/dLNear Optimal/Above Optimal LDL: 110- 129 mg/dLBorderline High LDL: 130-159 mg/dLHigh LDL: 160-189 mg/dLVery High LDL: greater than or equal to 190 mg/dL HDL Cholesterol 32(L) >40 mg/dL [facility] Comment:Desirable HDL: great er than 40 mg/dL Note: This HDL assay may give artificially low results in patients with liver disease. 01/26/2025 1:17 PM EDT 01/26/2025 2:07 PM EDT us Fide Watson MD LAB BLOOD ORDERABLES Final Result [facility] [address] [place] [phone] * POCT Glucose (01/05/2025 1:45 PM EST) Only the most recent of2 resultswithin the time period is included. Glucose Blood, POC 135 60 - 200 mg/dL [employer] Lot # [id number] Lot# Expiration Date 48, Blood Capillary blood specimen / Unknown 01/05/2025 1:45 PM EST us Fide Watson MD POINT OF CARE TEST ENTER/ED IT ORDERABLES Final Result * CT Abdomen w/ and w/o Contrast (12/08/2024) Anatomical Region Laterality Modality Body, Abdomen Computed Tomogra phy us Fide Watson MD IMG CT PROCEDURES Final Res ult * TSH W/Reflex to FT4 (11/23/2024 10:17 AM EST) TSH reflex Free T4 3.01 0.32 - 4.0 uIU/mL [facility] Blood Venous blood specimen / Unknown 11/23/2024 10:17 AM EST 11/23/2024 2:20 PM EST us Fide Watson MD LAB BLOOD ORDERABLES Final Result Performing Organization Address City/State/[facility] Co de Phone Number [facility] [address] [place] [address] [phone] * (ABNORMAL) Comprehensive Metabolic Panel (11/23/2024 10:17 AM EST) Sodium 138 135 - 145 mmol/L [facility] Potassium 4.1 3.3 - 5.1 mmol/L [facility] Chloride 101 96 - 108 mmol/L [facility] Carbon Dioxide 28 22 - 29 mmol/L [facility] Anion Gap 13 12 - 20 [facility] Urea Nitrogen (BUN) 15 9 - 16 mg/dL [facility] Creatinine, Serum 1.01 0.5 - 1.4 mg/dL [facility] Estimated Glomerular Filt Rate >60 [facility] Comment:Chronic Kidney Disea se: Estimated GFR < 60 mL/min/1.48g7Ydmxpt Kidney Disease: Estimated GFR < 15 mL/min/1.73m2 Glucose 191(H) 60 - 115 mg/dL [facility] Calcium 9.8 8.4 - 10.2 mg/dL [facility] Bilirubin, Total 0.4 0.0 - 1.0 mg/dL [facility] Aspartate Amino Transferase 33 5 - 37 U/L [facility] Alanine Aminotransferase 22 0 - 40 U/L [facility] Total Protein 8.5(H) 6.5 - 8.0 g/dL [facility] Albumin Level 4.3 3.5 - 5.0 g/dL [facility] Alkaline Phosphatase 58 39 - 117 U/L [facility] Blood Venous blood specimen / Unknown 11/23/2024 10:17 AM EST 11/23/2024 2:20 PM EST us Fide Watson MD LAB BLOOD ORDERABLES Final Result Performing Organization Address City/[facility]/ZIP Co de Phone Number [facility] [address] [place] [address] [phone] * (ABNORMAL) POCT HGB A1C (11/23/2024 9:25 AM EST) Pathologist [facility] Hemoglobin A1C 8.5(A) 4.0 - 6.0 % [employer] Lot # [id number] Lot# Expiration Date [id number] Blood 11/23/2024 9:25 AM EST Fide Watson MD POINT OF CARE TEST ENTER/ED IT ORDERABLES Final Result * Hepatitis C Antibody with Reflex to HCV, RNA, Quantitative, Real-Time PCR (01/23/2024 1:20 PM EST) [facility] Hepatitis C Antibody Nonreactive Nonreactive [facility] Comment:Antibodies to HCV no t detected; does not exclude early acuteHCV infection. Blood Venous blood specimen / Unknown 01/23/2024 1:20 PM EST 01/23/2024 1:55 PM EST Fide Watson MD LAB BLOOD ORDERABLES Final Result Performing Organization Address [facility] Co de Phone Number [facility] [address] [place] [address] [phone] from Last 3 Months or Most Recently Relevant to Health Maintenance Insurance [address] [address] MEDICARE ADVANTAGE HMO DENTAL - HSN PARTIAL (MEDICAID) Care Teams Pbx Technician Relationship Specialty Start Date End Date Fide Watson MD [address] [place] [phone] PCP - General Internal Medicine 04/27/20 Adriana Allen PharmD [address] [place] [phone] Pharmacist Internal Medicine 12/17/24
--- OUTSIDE RECORDS SUMMARY | 2025-01-26 16:05 | XMS_ITS | Encounter Summary ---
Author Organization [employer] Address [address] [facility] 7 [place] [address] Care Team Providers Care Pilot Steam Yacht Name Role Phone Fide Watson MD Primary Care Provider [phone] Adriana Allen PharmD Unavailable [phone] Encounter Details Date Type Department Care Team (Late st Contact Info) Description 09/24/2023 Orders Only [facility] MED & PEDS [address] [place], [place] [phone] Fide Watson MD [address] [place] [address] Type 2 diabetes mellitus with hyperglycemia, without long-term current use of insulin ([facility]) (Primary Dx) Social History Tobacco Use Types Packs/Day Years Used Date Smoking Tobacco: Never Passive Smoke Exposure: Never Smokeless Tobacco: Never Alcohol Use Standard Drinks/Week Comments Never 0 (1 standard drink = 0.6 oz pur e alcohol) Depression Answer Date Recorded Patient Health Questionnaire-9 Score 0 07/04/2023 Housing Stability Answer Date Recorded What is your housing situation today? I have rcoky pinon 09/03/[address] you [...] 11:00 AM EDT Medication Management [facility] MED & PEDS [address] [place] [address] Adriana Allen PharmD [address] [place] [address] 03/29/2025 11:30 AM EDT Office Visit [facility] [address] [place] [address] Fide Watson MD [address] [place] [address] documented as of this encounter Visit Diagnoses Diagnosis Type 2 diabetes mellitus with hyperglycemia, without long-term current use of insulin ([facility])- Primary documented in this encounter Additional Health Concerns Assessment Noted Time PHQ-9 Depression Total Score: 0 07/04/20 23 9:57 AM EDT documented as of this encounter Care Teams Pilot Steam Yacht Relationship Specialty Start Date End Date Fide Watson MD [address] [place] [address] PCP - General Internal Medicine 04/27/20 Adriana Allen PharmD [address] [place] [address] Pharmacist Internal Medicine 12/17/24 documented as of this encounter
--- OUTSIDE RECORDS SUMMARY | 2025-01-26 16:05 | XMS_ITS | Encounter Summary ---
Author Organization [employer] Address [address] [facility] 7t [place] [address] Care Team Providers Care Ed Transporter Name Role Phone Fide Watson MD Primary Care Provider [phone] Adriana Allen PharmD Unavailable [phone] Reason for Visit * Reason Onset Date Comments Nurse Triage 01/02/2024 Encounter Details Date Type Department Care Team ([facility] st Contact Info) Description 01/02/2024 Telephone [facility] MEDICINE [address] [place] [address] Fide Watson MD [address] [place] [address] Nurse Triage Social History Tobacco Use Types Packs/Day Years [...] encounter Miscellaneous Notes * Telephone Encounter - Mago Hayes - 01/03/2024 9:30 AM EST Tc from pt returning call in regards below message pt stated went to Urgent Care yesterday. * Telephone Encounter - Veronica Daniels RN - 01/02/2024 4:12 PM EST Call returned to [facility] Martina for triage. No answer LVM to return call to [facility] triage line. Call to Bernarda, no answer, LVM to return call to [facility] PRN. * Telephone Encounter - Mago Hayes - 01/02/2024 4:02 PM EST Symptom: Blisters and fall Outcome: Schedule an appointment to be seen within 24 hours Reason: Caller denied all higher acuity questions Back left shoulder The caller accepted this outcome Any questions to Bernarda [phone] documented in this encounter Plan of Treatment Upcoming Encounters Date Type Department Care Team (Late st Contact Info) Description 02/18/2025 11:00 AM EDT Medication Management [facility] MED & PEDS [address] [place], [place] [phone] Adriana Allen, PharmD [address] [place], [place] [phone] 03/29/2025 11:30 AM EDT Office Visit [facility] CHC MED & PEDS [address] [place] [address] Fide Watson MD [address] [place] [address] documented as of this encounter Visit Diagnoses Not on filedocumented in this encounter Additional Health Concerns Assessment Noted Time PHQ-9 Depression Total Score: 0 07/04/20 23 9:57 AM EDT documented as of this encounter Care Teams Ed Transporter Relationship Specialty Start Date End Date Fide Watson MD [address] [place] [address] PCP - General Internal Medicine 04/27/20 Adriana Allen PharmD [address] [place] [address] Pharmacist Internal Medicine 12/17/24 documented as of this encounter
--- OUTSIDE RECORDS SUMMARY | 2025-01-26 16:05 | XMS_ITS | Encounter Summary ---
Author Organization [employer] Address [address] [place] [address] 7 [place] [address] Care Team Providers Care Rough Rice Grader Name Role Phone Fide Watson MD Primary Care Provider [phone] Adriana Allen PharmD Unavailable [phone] Reason for Visit * Consultation (Routine) - Pending Review Specialty Diagnoses / Procedures Referred By Contac t Referred To Contact Pharmacy Diagnoses Type 2 diabetes mellitus with hyperglycemia, without long-term current use of insulin (CMS/HCC) Primary hypertension Fide Watson MD [address] [place] [address] Phone: tel: fax: Referral ID Status Reason Start Date Expiration Date Visits Requested Visits Authorized [id number] Pending Review Consult and Treat 11/23/2024 11/23/2025 6 6 Encounter Details Date Type Department Care Team ([facility] st Contact Info) Description 01/21/2025 10:00 AM EST Telemedicine [facility] CHC MED & PEDS [address] [place] [address] Adriana Allen, PharmD [address] [place] [address] Type 2 diabetes mellitus with hyperglycemia, without long-term current use of insulin (CMS/HCC) (Primary Dx) Social History Tobacco Use Types [...] AM EDT documented as of this encounter Progress Notes * Adriana Allen PharmD - 01/21/2025 10:00 AM EST Pharmacy Consult Visit Type: CDTM Pharmacist: Adriana Allen PharmD Jean Carlos Barrios is a 79 y.o. year old patient here for a follow-up visit completed in person. Subjective History: General / Intake (updated 12/17/24) Allergies: is allergic to lisinopril (cough) Read/Write: Yes, in Welsh, Romanian a little Recent Hospitalizations: No Social History as reported by patient: Tobacco: Denies Alcohol: Denies Caffeine: Current, coffee 2 cup(s)/day, soda sometimes Illicit drugs: Denies Diet: Rice, beans, pork, toast, oatmeal, eggs Exercise: denies, some walking (but not when it's cold) Adherence / patient self-management Receives 3 months mail order in vials, takes independently Denies missed doses OTC medication, vitamin, supplement use: denies Type 2 Diabetes Patient unable to start Ozempic due to high copay. Submitted a prior authorization for a Tier Exception (to get a lower tier/copay), however this was denied. Patient confirmed receiving new One Touch Verio meter and has been checking blood glucose daily, however does not have meter at time of visit. Reports 180, 150, 200 as examples of fasting BG readings. Denies experiencing hypoglycemia (< 70mg/dl). Last PCP visit 01/05, POC glucose 135mg/dl and no medication changes. Pravastatin was changed to atorvastatin after last visit. Patient confirms taking atorvastatin and does not have concerns or side effects. Needs repeat lipids and LFTs. Hyperlipidemia The 10-year ASCVD risk score (Ish RIGGINS, et al., 2019) is: 64.2% Values used to calculate the score: Age: 79 years Sex: Male Is Non- : No Diabetic: Yes Tobacco smoker: No Systolic Blood Pressure: 140 mmHg Is BP treated: Yes HDL Cholesterol: 36 mg/dL Total Cholesterol: 209 mg/dL Objective History: Treatment history/considerations: PMH: HTN, GERD, BPH, T2DM, tubular adenoma of colon Medication: Cough with lisinopril Previously tried Trulicity, stopped due to cost. Unable to afford any GLP-1RA, likely similar issue for brand name medications (such as SGLT2i) Recent labs: Microalbumin/creatinine ratio: due - ordered 01/21/25 Vit B12 (if on metformin): due - ordered 01/21/25 Metformin package insert recommends monitoring every 2-3 yrs. Lab Results Component Value Date ALT 22 11/23/2024 AST 33 11/23/2024 LDLCHOLCAL 119 (H) 11/23/2024 TRIG 270 (H) 11/23/2024 K 4.1 11/23/2024 NA 138 11/23/2024 MICROALBCREU 12.7 01/23/2024 CREATININE 1.01 11/23/2024 EGFR >60 11/23/2024 HGBA1C 8.5 (A) 11/23/2024 HGBA1C 8.0 (A) 08/19/2024 HGBA1C 8.3 (A) 02/06/2024 CrCl (AdjBW)= 63 mL/min Recent blood pressure readings: BP Readings from Last 4 Encounters: 01/05/25 (!) 140/84 12/17/24 118/74 11/23/24 (!) 148/94 10/20/24 133/83 Pulse Readings from Last 4 Encounters: 01/05/25 77 11/23/24 76 10/20/24 71 10/06/24 71 Immunizations: Up-to-date as of 12/17/24. Preferred Pharmacy: [facility] - [address] [address] [id number] - [place], [place] - [address] [facility] [facility] [phone] Assessment/Plan: Type 2 Diabetes Pharmacologic Therapy: Glimepiride 2mg twice daily Metformin 1000mg twice daily Additional recommendations per ADA: On aspirin: No, risk > benefit On statin: Yes, moderate intensity On ACEI/ARB: Yes Dental Exam in the past 6 mo: Yes, and upcoming Eye Exam in the past 12 mo: Yes, and upcoming Goals of Therapy per the ADA Standards of Medical Care in Diabetes Achieve A1c of < 8.0% while also minimizing episodes of hypoglycemia Plan: Lipid panel and LFTs ordered to assess efficacy and safety of new medication atorvastatin 20mg. If necessary may increase to 40mg daily. Patient's reported blood glucose readings are above goal but not concerning. Patient to bring meterto next visit before any potential medication changes. Patient to follow up in CDTM in 1 month for next steps. A1c check at that time. Education: Healthy diet and lifestyle. Discussed role of A1c monitoring, A1c and SMBG goals Reviewed risks of macro- and microvascular complications of uncontrolled DM. Reviewed signs, symptoms and treatments of hypoglycemia to which patient confirmed understanding. documented in this encounter Plan of Treatment Upcoming Encounters Date Type Department Care Team (Late st Contact Info) Description 02/18/2025 11:00 AM EDT Medication Management [facility] MED & PEDS [address] [place] [address] Adriana Allen PharmD [address] [place] [address] 03/29/2025 11:30 AM EDT Office Visit [facility] MED & PEDS [address] [place] [address] Fide Watson MD [address] [place] [address] Scheduled Orders Name Type Priority Associated Diagnoses Orde r Schedule Albumin, Random Urine W/Creatinine Lab Routine Type 2 diabetes mellitus with hyperglycemia, without long-term current use of insulin ([facility]) Expected: 01/21/2025 (Approximate), Expires: 01/21/2026 Lipid Panel, Standard Lab Routine Type 2 diabetes mellitus with hyperglycemia, without long-term current use of insulin ([facility]) Expected: 01/21/2025 (Approximate), Expires: 01/21/2026 Hepatic Function Panel Lab Routine Type 2 diabetes mellitus with hyperglycemia, without long-term current use of insulin (CMS/HCC) Expected: 01/21/2025 (Approximate), Expires: 01/21/2026 Vitamin B12 Lab Routine Type 2 diabetes mellitus with hyperglycemia, without long-term current use of insulin (CMS/HCC) Expected: 01/21/2025 (Approximate), Expires: 01/21/2026 documented as of this encounter Visit Diagnoses Diagnosis Type 2 diabetes mellitus with hyperglycemia, without long-term current use of insulin ([facility])- Primary documented in this encounter Additional Health Concerns Assessment Noted Time PHQ-9 Depression Total Score: 0 11/23/19 25 9:24 AM EST documented as of this encounter Care Teams Rough Rice Grader Relationship Specialty Start Date End Date Fide Watson MD [address] [place] [id number] PCP - General Internal Medicine 04/27/20 Adriana Allen PharmD [address] [place] [id number] Pharmacist Internal Medicine 12/17/24 documented as of this encounter
--- OUTSIDE RECORDS SUMMARY | 2025-01-26 16:05 | XMS_ITS | Encounter Summary ---
Author Organization [employer] Address 75 [facility] 7 [place] [address] Care Team Providers Care Circus Agent Name Role Phone Fide Watson MD Primary Care Provider [phone] Adriana Allen PharmD Unavailable Encounter Details Date Type Department Care Team (Late st Contact Info) Description 10/21/2024 Orders Only [facility] CH[facility] MED & PEDS [address] [place], [place] [phone] Fide Watson MD [address] [place] [address] Social History Tobacco Use Types Packs/Day Years [...] Description 02/18/2025 11:00 AM EDT Medication Management [facility] MED & PEDS [address] [place] [address] Adriana Allen PharmD [address] [place] [address] 03/29/2025 11:30 AM EDT Office Visit [facility] MED & PEDS [address] [place] [address] Fide Watson MD [address] [place] [address] documented as of this encounter Visit Diagnoses Not on filedocumented in this encounter Additional Health Concerns Assessment Noted Time PHQ-9 Depression Total Score: 0 07/04/20 23 9:57 AM EDT documented as of this encounter Care Teams Circus Agent Relationship Specialty Start Date End Date Fide Watson MD [address] [place] [address] PCP - General Internal Medicine 04/27/20 Adriana Allen PharmD [address] [place] [address] Pharmacist Internal Medicine 12/17/24 documented as of this encounter
--- OUTSIDE RECORDS SUMMARY | 2025-01-26 16:05 | XMS_ITS | Encounter Summary ---
Author Organization [employer] Address 75 [facility] 7 [place] [address] Care Team Providers Care Painter And Body Work Name Role Phone Fide Watson MD Primary Care Provider [phone] Adriana Allen PharmD Unavailable [phone] Reason for Visit * Reason Onset Date Comments Appointment Request 03/06/2023 Encounter Details Date Type Department Care Team ([facility] st Contact Info) Description 03/06/2023 Telephone [facility] MEDICINE [address] [place] [address] Fide Watson MD [address] [place] [address] Appointment Request Social History Tobacco Use Types Packs/Day Years Used Date Smoking Tobacco: Never Smokeless Tobacco: Never Sex and Gender Information Value Date Recorded Sex Assigned at Male 09/17/2022 10:37 AM EDT Legal Sex Male 10:37 AM EDT Gender Identity Choose not to disclose 10:37 AM EDT Sexual Orientation Choose not to disclose 2021 10:37 AM EDT COVID-19 Exposure Response Date Recorded In the last 10 days, have yo u been in contact with someone who was confirmed or suspected to have Coronavirus/COVID-19? No / Unsure 03/06/2023 10:32 AM EDT documented as of this encounter Miscellaneous Notes * Telephone Encounter - Eligio Sullivan - 03/06/2023 12:33 PM EDT Tc from pt requesting to R/S appt on 03/12/23 ( derm fu ) Please contact pt at [phone] documented in this encounter Plan of Treatment Upcoming Encounters Date Type Department Care Team (Late st Contact Info) Description 02/18/2025 11:00 AM EDT Medication Management [facility] MED & PEDS [address] [place] [address] Adriana Allen PharmD [address] [place] [address] 03/29/2025 11:30 AM EDT Office Visit [facility] MED & PEDS [address] [place] [address] Fide Watson MD [address] [place] [address] documented as of this encounter Visit Diagnoses Not on filedocumented in this encounter Care Teams Painter And Body Work Relationship Specialty Start Date End Date Fide Watson MD [address] [place] [address] PCP - General Internal Medicine 04/27/20 Adriana Allen PharmD [address] [place] [address] Pharmacist Internal Medicine 12/17/24 documented as of this encounter
--- OUTSIDE RECORDS SUMMARY | 2025-01-26 16:05 | XMS_ITS | Encounter Summary ---
Author Organization [employer] Address [address] [place] [address] 7 [place] [address] Care Team Providers Care International Student Counselor Name Role Phone Fide Watson MD Primary Care Provider Adriana Allen PharmD Unavailable [phone] Encounter Details Date Type Department Care Team (Late st Contact Info) Description 06/03/[address] [facility] MEDICINE [address] [place] [address] Hailee Ernst LPN Social History Tobacco Use Types Packs/Day Years [...] Description 02/18/2025 11:00 AM EDT Medication Management [facility] MED & PEDS [address] [place] [address] Adriana Allen, PharmD [address] [place] [address] 03/29/2025 11:30 AM EDT Office Visit [facility] MED & PEDS [address] [place] [address] Fide Watson MD [address] [place] [address] documented as of this encounter Procedures Procedure Name Priority Date/Time Associated Diagnosis Comments ALBUMIN, RANDOM URINE W/CREATININE Routine 07/04/2023 12:07 PM EDT COMPREHENSIVE METABOLIC PANEL, FASTING Routine 07/04/2023 10:48 AM EDT documented in this encounter Results * Albumin, Random Urine W/Creatinine (07/04/2023 12:07 PM EDT) Creatinine, Urine 224.84 mg/dL [facility] Microalbumin Urine 17.0 mg/L [facility] Microalbum Creatinine Ratio Ur 7.5 ug/mg cr [facility] Comment:Albumin/Creatinine R atio Reference Ranges: Normal: < 30 ug/mg creatinine Microalbuminuria: 30 - 300 ug/mg creatinineClinical Albuminuria: > 300 ug/mg creatinine 07/04/2023 12:0 7 PM EDT 07/04/2023 2:16 PM EDT us Fide Watson MD LAB URINE ORDERABLES Final Result [facility] [address] [place] [phone] * (ABNORMAL) Comprehensive Metabolic Panel, Fasting (07/04/2023 10:48 AM EDT) Sodium 140 135 - 145 mmol/L [facility] Potassium 4.2 3.3 - 5.1 mmol/L [facility] Chloride 102 96 - 108 mmol/L [facility] Carbon Dioxide 30(H) 22 - 29 mmol/L [facility] Anion Gap 12 12 - 20 [facility] Urea Nitrogen (BUN) 12 9 - 16 mg/dL [facility] Creatinine, Serum 0.95 0.5 - 1.4 mg/dL [facility] Estimated Glomerular Filt Rate >60 [facility] Comment:NOTE: For -Am erican individuals, multiply the result by 1.210.Chronic Kidney Disease: Estimated GFR < 60 mL/min/[id number] Kidney Disease: Estimated GFR < 15 mL/min/1.73m2 Glucose Fasting 127(H) 60 - 99 mg/dL [facility] Comment:A fasting glucose of 126 mg/dl or greater on more than oneoccasion is considered diagnostic of diabetes. Calcium 9.9 8.4 - 10.2 mg/dL [facility] Bilirubin, Total 0.5 0.0 - 1.0 mg/dL [facility] Aspartate Amino Transferase 23 5 - 37 U/L [facility] Alanine Aminotransferase 17 0 - 40 U/L [facility] Total Protein 8.3(H) 6.5 - 8.0 g/dL [facility] Albumin Level 4.4 3.5 - 5.0 g/dL [facility] Alkaline Phosphatase 53 39 - 117 U/L [facility] 07/04/2023 10:4 8 AM EDT 07/04/2023 2:11 PM EDT Fide Watson MD LAB BLOOD ORDERABLES Final Result Performing Organization Address City/State/[facility] Co de Phone Number [facility] [address] [place] [address] [phone] documented in this encounter Visit Diagnoses Not on filedocumented in this encounter Care Teams International Student Counselor Relationship Specialty Start Date End Date Fide Watson MD [address] [place] [address] PCP - General Internal Medicine 04/27/20 Adriana Allen PharmD [address] [place] [address] Pharmacist Internal Medicine 12/17/24 documented as of this encounter
[2025-01-26 16:07] LABS: Vitamin B12 233 pg/mL (200-900)
== END 2025-01-26 13:17 | disposition home or self-care (01) ==
LOC: HO.CHCLDS 13:16
PROVIDERS: Visit Provider Internal Medicine
DX: E11.65 Type 2 diabetes mellitus with hyperglycemia (principal)
CPT/HCPCS: 36415; 80061; 80076; 82043; 82570; 82607

== ENCOUNTER 2025-07-16 10:59 | Outpatient (REF) | payer OTHER, SELFPAY ==
--- OUTSIDE RECORDS SUMMARY | 2025-07-16 11:42 | XMS_ITS | Clinical Summary ---
Author Organization [employer] Address [address] [facility] 7t [place] [address] Care Team Providers Care Oral Surgery Technician Name Role Phone Fide Watson MD Primary Care Provider [phone] Adriana Allen PharmD Unavailable [phone] Allergies Active Allergy Reactions Criticality Noted Date Comments Lisinopril Cough 11/23/2024 Medications timolol (Timoptic) 0.25 % ophthalmic solution 3 Active guaiFENesin (Mucinex) 600 MG 12 hr tabletIndication s:Subacute cough Take 2 tablets (1,200 mg) by mouth 2 times daily. Do not crush, chew, or split. 120 tablet 11 4 025 Active spironolactone (Aldactone) 25 MG tabletIndication s:Essential hypertension,Jennifer winnie hypertension Take 1 tablet (25 mg) by mouth Once per day. 30 tablet 11 4 025 Active lidocaine (Xylocaine) 5 % ointmentIndicati ons:Type 2 diabetes mellitus with hyperglycemia, without long-term current use of insulin ([facility]),Parest hesia To apply to the affected area 2 times a day 30 g 3 4 Active metFORMIN (Glucophage) 1000 MG tablet TAKE 1 TABLET BY MOUTH TWICE A DAY 200 tablet 2 4 Active ammonium lactate (Lac-Hydrin) 12 % lotionIndication s:Dry skin Apply topically if needed for dry skin. 225 g 11 5 026 Active losartan (Cozaar) 50 MG tabletIndication s:Primary hypertension Take 1 tablet (50 mg) by mouth Once per day. Lisinopril discontinued b/c of a cough 30 tablet 5 026 Active atorvastatin (Lipitor) 20 MG tabletIndication s:Type 2 diabetes mellitus with hyperglycemia, without long-term current use of insulin ([facility]) Take 1 tablet (20 mg) by mouth Once per day. 100 tablet 3 5 Active hydroCHLOROthiaz ramon (HYDRODiuril) 25 MG tabletIndication s:Essential hypertension TAKE 1 TABLET BY MOUTH EVERY DAY 100 tablet 2 5 Active doxazosin (Cardura) 1 MG tablet TOME 1 TABLETA POR LA BOCA CADA ELBERT 100 tablet 2 5 Active b complex vitamins capsuleIndicatio ns:Dietary counseling Take 1 capsule by mouth Once per day. 30 capsule 5 026 Active metoprolol tartrate (Lopressor) 25 MG tabletIndication s:Essential hypertension TOME 1 TABLETA POR LA BOCA DOS VECES AL ELBERT 200 tablet 2 5 Active pantoprazole (ProtoNix) 40 MG EC tabletIndication s:Chronic gastritis without bleeding, unspecified gastritis type,Gastroesoph ageal reflux disease without esophagitis TAKE 1 TABLET BY MOUTH BEFORE BREAKFAST. DO NOT CRUSH, CHEW OR SPLIT. 100 tablet 5 Active Dulaglutide (Trulicity) 1.5 MG/0.5ML solution auto-injector Inject 1.5 mg under the skin 1 (one) time per week. 2 mL 5 Active Accu-Chek Softclix Lancets lancets Test blood sugar once daily Do not start before June 20, 2025. 100 each 5 Active Blood Glucose Monitoring Suppl (Accu-Chek Guide) w/Device kit Test blood sugar daily. Do not start before June 20, 2025. 1 kit 5 Active glucose blood (Accu-Chek Guide Test) test strip Test blood sugar once daily Do not start before June 20, 2025. 100 each 5 Active cetirizine (ZyrTEC) 10 MG tabletIndication s:Chronic cough Take 1 tablet (10 mg) by mouth Once per day. 30 tablet 5 026 Active Active Problems Problem Noted Date Diagnosed Date [...] Encounters Date Type Department Care Team Description 07/11/2025 Refill [facility] MEDICINE [address] [place] [address] Erin Modi FNP Chronic gastritis without bleeding, unspecified gastritis type; Gastroesophageal reflux disease without esophagitis 06/28/2025 11:00 AM EDT Office Visit [facility] MED & PEDS [address] [place] [address] Fide Watson MD Type 2 diabetes mellitus with hyperglycemia, without long-term current use of insulin ([facility]) (Primary Dx); Primary hypertension; Chronic cough 06/28/2025 Travel 06/09/2025 Travel 06/01/2025 Refill [facility] PED[facility] [address] [place] [address] Fide Watson MD Type 2 diabetes mellitus with hyperglycemia, without long-term current use of insulin (CMS/HCC) 05/24/2025 Refill [facility] MEDICINE [address] [place] [address] Fide Watson MD Chronic gastritis without bleeding, unspecified gastritis type; Gastroesophageal reflux disease without esophagitis 05/14/2025 Telephone [facility] MEDICINE [address] [facility] [place] [address] Fide Watson MD Med Refill 04/15/2025 Travel from Last 3 Months Immunizations Immunization Administration Dates Next Due Influenza High-dose Quadriva [...] is your housing situation today? I have rockychris pinon 11/13/[address] you [...] Sign Reading Time Taken Comments Blood Pressure 136/84 06/28/2025 10:48 AM EDT Pulse 78 06/28/2025 10:48 AM EDT Temperature 36.7 C (98.1 F) 06/28/2025 10:48 AM EDT Respiratory Rate 18 06/28/2025 10:48 AM EDT Oxygen Saturation 97% 06/28/2025 10:48 AM EDT Inhaled Oxygen Concentration - - Weight 97.3 kg (214 lb 6.4 oz) 06/28/2025 10:48 AM EDT Height 161 cm (5' 3.39 ) 06/28/2025 10:48 AM EDT Body Mass Index 37.52 06/28/2025 10:48 AM EDT Plan of Treatment Upcoming Encounters Date Type Department Care Team (Late st Contact Info) Description 08/04/2025 11:15 AM EDT Office Visit [facility] MED & PEDS [address] [place] [address] Fide Watson MD [address] [place] [address] 09/09/2025 11:00 AM EDT Medication Management [facility] PED[facility] [address] [place] [address] Adriana Allen, PharmD [address] [place] [address] Health Maintenance Due Date Last Done Comments Dental X-Ray: Bitewings 1946 Dental X-Ray: Full Mouth 1946 Derm Melanoma Skin Check 1946 Eye Exam 02/29/1955 COVID-19 Vaccine ( season) 2025 08/19/2024, 01/26/2021, 12/29/2020 Influenza Vaccine (#1) 2025 , 08/03/2023, 08/14/2021, Additional history exists Dental Oral Exam 09/12/2025 03/12/2025, 07/24/2023 Dental Prophylaxis 09/12/2025 03/12/2025, 07/24/2023 Diabetes: Hemoglobin A1C 09/28/2025 025, 06/09/2025, 02/18/2025, Additional history exists Alcohol/Substance Use Screening 11/23/2025 11/23/2024 Depression Screening 11/23/2025 11/23/2024, 11/23/19 25 SDOH Screening 11/23/2025 11/23/2024 Diabetes: Urine Protein Screening 01/26/2026 01/26/2025, 01/23/2024, 07/04/2023, Additional history exists Lipid Panel 01/26/2026 01/26/2025, 04/2025, 01/23/2024, Additional history exists Diabetes: Foot Exam 06/28/2026 06/28/2025, 08/19/2024, 11/07/2023, Additional history exists Tobacco Screening 06/28/2026 06/28/2025 DTaP/Tdap/Td Vaccines (2 - Td or Tdap) 08/17/2030 08/17/2020 Hepatitis C Screening Completed 01/23/2024 Pneumococcal Vaccine: 50+ Years Completed 08/19/2024, 02/04/2020 [...] patient's age to complete this topic Meningococcal B Vaccine Aged Out No l onger eligible based on patient's age to complete [...] Date/Time Associated Diagnosis Comments POCT GLUCOSE Routine 06/28/2025 11:21 AM EDT Type 2 diabetes mellitus with hyperglycemia, without long-term current use of insulin (CMS/HCC) POCT GLYCATED HEMOGLOBIN, TOTAL Routine 06/28/2025 11:20 AM EDT Type 2 diabetes mellitus with hyperglycemia, without long-term current use of insulin (CMS/HCC) POCT GLYCATED HEMOGLOBIN, TOTAL Routine 06/09/2025 11:57 AM EDT Type 2 diabetes mellitus with hyperglycemia, without long-term current use of insulin (CMS/HCC) PROPHYLAXIS - ADULT Routine 03/12/2025 1 1:00 AM EDT PERIODIC ORAL EVALUATION - ESTABLISHED PATIENT Routine 03/12/2025 11:00 AM EDT ALBUMIN, RANDOM URINE W/CREATININE Routine 01/26/2025 1:20 PM EDT LIPID PANEL, STANDARD Routine 01/26/2025 1:17 PM EDT HEPATITIS C AB W/REFL TO HCV RNA, QN, PCR Routine 01/23/2024 1:20 PM EST Type 2 diabetes mellitus with hyperglycemia, without long-term current use of insulin (CMS/HCC) from Last 3 Months or Most Recently Relevant to Health Maintenance Results * POCT Glucose (06/28/2025 11:21 AM EDT) Glucose Blood, POC 155 60 - 200 mg/dL QC Media Lot # [id number] Lot# Expiration Date Comment:random Blood Capillary blood specimen / Unknown 06/28/2025 11:21 AM EDT us Fide Watson MD POINT OF CARE TEST ENTER/ED IT ORDERABLES Final Result * (ABNORMAL) POCT HGB A1C (06/28/2025 11:20 AM EDT) Only the most recent of2 resultswithin the time period is included. Hemoglobin A1C 8.1(A) 4.0 - 5.7 % QC Media Lot # [id number] Lot# Expiration Date Blood 06/28/2025 11:2 0 AM EDT us Fide Watson MD POINT OF CARE TEST ENTER/ED IT ORDERABLES Final Result * Albumin, Random Urine W/Creatinine (01/26/2025 1:20 PM EDT) Creatinine, Urine 148.99 mg/dL [facility] Microalbumin Urine 11.0 mg/L [facility] Microalbum Creatinine Ratio Ur 7.3 <30 ug/mg cr [facility] Comment:Albumin/Creatinine R atio Reference Ranges: Normal: < 30 ug/mg creatinine Microalbuminuria: 30 - 300 ug/mg creatinineClinical Albuminuria: > 300 ug/mg creatinine 01/26/2025 1:20 PM EDT 01/26/2025 2:10 PM EDT Fide Watson MD LAB URINE ORDERABLES Final Result [facility] [address] [place] [phone] * (ABNORMAL) Lipid Panel, Standard (01/26/2025 1:17 PM EDT) Triglycerides 206(H) <150 mg/dL [facility] Comment:Desirable Triglyceri de: less than 150 mg/dLBorderline High Triglyceride 150-199 mg/dLHigh Triglyceride: 200-499 mg/dLVery High Triglyceride: greater than or equal to 5OO mg/dL Cholesterol 139 <200 mg/dL [facility] Comment:Desirable Cholestero l: less than 200 mg/dLBorderline High Cholesterol: 200-239 mg/dLHigh Cholesterol: greater than 239 mg/dL LDL Cholesterol Calculated 66 <100 mg/dL [facility] Comment:Desirable LDL: less than 100 mg/dLNear Optimal/Above Optimal LDL: 110- 129 mg/dLBorderline High LDL: 130-159 mg/dLHigh LDL: 160-189 mg/dLVery High LDL: greater than or equal to 190 mg/dL HDL Cholesterol 32(L) >40 mg/dL [facility] Comment:Desirable HDL: great er than 40 mg/dL Note: This HDL assay may give artificially low results in patients with liver disease. 01/26/2025 1:17 PM EDT 01/26/2025 2:07 PM EDT us Fide Watson MD LAB BLOOD ORDERABLES Final Result Performing Organization Address City/[facility]/ZIP Co de Phone Number [facility] [address] [place] [phone] * Hepatitis C Antibody with Reflex to HCV, RNA, Quantitative, Real-Time PCR (01/23/2024 1:20 PM EST) Hepatitis C Antibody Nonreactive Nonreactive [facility] Comment:Antibodies to HCV no t detected; does not exclude early acuteHCV infection. Blood Venous blood specimen / Unknown 01/23/2024 1:20 PM EST 01/23/2024 1:55 PM EST Fide Watson MD LAB BLOOD ORDERABLES Final Result [facility] [address] [place] [phone] from Last 3 Months or Most Recently Relevant to Health Maintenance Insurance [facility] MEDICARE ADVANTAGE HMO DENTAL - HSN PARTIAL (MEDICAID) Care Teams Oral Surgery Technician Relationship Specialty Start Date End Date Fide Watson MD [address] [place] [address] PCP - General Internal Medicine 04/27/20 Adriana Allen PharmD [address] [place] [address] Pharmacist Internal Medicine 12/17/24
--- OUTSIDE RECORDS SUMMARY | 2025-07-16 11:42 | XMS_ITS | Encounter Summary ---
Author Organization [employer] Address [address] [place] [address] [address], [place] [address] Care Team Providers Care General Superintendent Name Role Phone Fide Watson MD Primary Care Provider Adriana Allen PharmD Unavailable [phone] Encounter Details Date Type Department Care Team (Late st Contact Info) Description 06/03/2023 Orders Only [facility] MEDICINE [address] [place] [address] Hailee Ernst LPN Social History Tobacco Use [...] Description 08/04/2025 11:15 AM EDT Office Visit [facility] MED & PEDS [address] [place] [address] Fide Watson MD [address] [place] [address] 09/09/2025 11:00 AM EDT Medication Management [facility] MED & PEDS [address] [place] [address] Adriana Allen, PharmD [address] [place] [address] documented as of this encounter Procedures Procedure Name Priority Date/Time Associated Diagnosis Comments ALBUMIN, RANDOM URINE W/CREATININE Routine 07/04/2023 12:07 PM EDT COMPREHENSIVE METABOLIC PANEL, FASTING Routine 07/04/2023 10:48 AM EDT documented in this encounter Results * Albumin, Random Urine W/Creatinine (07/04/2023 12:07 PM EDT) Creatinine, Urine 224.84 mg/dL [facility] Microalbumin Urine 17.0 mg/L [facility] Microalbum Creatinine Ratio Ur 7.5 ug/mg cr [facility] Comment:Albumin/Creatinine R atio Reference Ranges: Normal: < 30 ug/mg creatinine Microalbuminuria: 30 - 300 ug/mg creatinineClinical Albuminuria: > 300 ug/mg creatinine 07/04/2023 12:0 7 PM EDT 07/04/2023 2:16 PM EDT us Fide Watson MD LAB URINE ORDERABLES Final Result [facility] [address] [place] [phone] * (ABNORMAL) Comprehensive Metabolic Panel, Fasting (07/04/2023 10:48 AM EDT) Sodium 140 135 - 145 mmol/L [facility] Potassium 4.2 3.3 - 5.1 mmol/L [facility] Chloride 102 96 - 108 mmol/L [facility] Carbon Dioxide 30(H) 22 - 29 mmol/L [facility] Anion Gap 12 12 - 20 [facility] Urea Nitrogen (BUN) 12 9 - 16 mg/dL [facility] Creatinine, Serum 0.95 0.5 - 1.4 mg/dL [facility] Estimated Glomerular Filt Rate >60 [facility] Comment:NOTE: For -Am erican individuals, multiply the result by 1.210.Chronic Kidney Disease: Estimated GFR < 60 mL/min/1.89r3Bgbcpl Kidney Disease: Estimated GFR < 15 mL/min/1.73m2 Glucose Fasting 127(H) 60 - 99 mg/dL [facility] Comment:A fasting glucose of 126 mg/dl or greater on more than oneoccasion is considered diagnostic of diabetes. Calcium 9.9 8.4 - 10.2 mg/dL [facility] Bilirubin, Total 0.5 0.0 - 1.0 mg/dL [facility] Aspartate Amino Transferase 23 5 - 37 U/L [facility] Alanine Aminotransferase 17 0 - 40 U/L [facility] Total Protein 8.3(H) 6.5 - 8.0 g/dL [facility] Albumin Level 4.4 3.5 - 5.0 g/dL [facility] Alkaline Phosphatase 53 39 - 117 U/L [facility] 07/04/2023 10:4 8 AM EDT 07/04/2023 2:11 PM EDT Fide Watson MD LAB BLOOD ORDERABLES Final Result Performing Organization Address City/State/[place] Co de Phone Number [facility] [address] [place] [phone] documented in this encounter Visit Diagnoses Not on filedocumented in this encounter Care Teams General Superintendent Relationship Specialty Start Date End Date iFde Watson MD [address] [place] [phone] PCP - General Internal Medicine 04/27/20 Adriana Allen PharmD [address] [place] [address] Pharmacist Internal Medicine 12/17/24 documented as of this encounter
--- OUTSIDE RECORDS SUMMARY | 2025-07-16 11:42 | XMS_ITS | Encounter Summary ---
Author Organization [employer] Address [address] [facility] 7t [place] [address] Care Team Providers Care Chemical Process Operator Name Role Phone Fide Watson MD Primary Care Provider [phone] Adriana Allen PharmD Unavailable [phone] Reason for Visit * Reason Comments Med Refill Encounter Details Date Type Department Care Team ([facility] Contact Info) Description 07/11/2025 Refill [facility] MEDICINE [address] [place] [address] Erin Modi FNP [address] [place] [address] Chronic gastritis without bleeding, unspecified gastritis type; Gastroesophageal reflux disease without esophagitis Social History Tobacco Use Types Packs/Day Years [...] Upcoming Encounters Date Type Department Care Team ([facility] st Contact Info) Description 08/04/2025 11:15 AM EDT Office Visit [facility] MED & PEDS [address] [place] [address] Fide Watson MD [address] [place] [address] 09/09/2025 11:00 AM EDT Medication Management [facility] MED & PEDS [address] [place] [address] Adriana Allen, PharmD [address] [place] [address] documented as of this encounter Visit Diagnoses Diagnosis Chronic gastritis without bleeding, unspecified gastritis type Gastroesophageal reflux disease without esophagitis Esophageal reflux documented in this encounter Additional Health Concerns Assessment Noted Time PHQ-9 Depression Total Score: 0 11/23/19 25 9:24 AM EST documented as of this encounter Care Teams Chemical Process Operator Relationship Specialty Start Date End Date Fide Watson MD [address] [place] [address] PCP - General Internal Medicine 04/27/20 Adriana Allen, VickeyD [address] [place] [address] Pharmacist Internal Medicine 12/17/24 documented as of this encounter
--- OUTSIDE RECORDS SUMMARY | 2025-07-16 11:42 | XMS_ITS | Encounter Summary ---
Author Organization [employer] Address [address] [facility] [address] [place] [address] Care Team Providers Care Sales And Customer Relations Rep Name Role Phone Fide Watson MD Primary Care Provider [phone] Adriana Allen PharmD Unavailable [phone] Reason for Visit * Reason Onset Date Comments Appointment Request 03/06/2023 Encounter Details Date Type Department Care Team ([facility] st Contact Info) Description 03/06/2023 Telephone [facility] MEDICINE [address] [place] [address] Fide Watson MD [address] [place] [address] Appointment Request Social History Tobacco Use Types [...] derm fu ) Please contact pt at [phone] documented in this encounter Plan of Treatment Upcoming Encounters Date Type Department Care Team (Late st Contact Info) Description 08/04/2025 11:15 AM EDT Office Visit [facility] MED & PEDS [address] [place] [address] Fide Watson MD [address] [place] [address] 09/09/2025 11:00 AM EDT Medication Management [facility] MED & PEDS [address] [place] [address] Adriana Allen PharmD [address] [place] [address] documented as of this encounter Visit Diagnoses Not on filedocumented in this encounter Care Teams Sales And Customer Relations Rep Relationship Specialty Start Date End Date Fide Watson MD [address] [place] [address] PCP - General Internal Medicine 04/27/20 Adriana Allen PharmD [address] [place] [phone] Pharmacist Internal Medicine 12/17/24 documented as of this encounter
--- OUTSIDE RECORDS SUMMARY | 2025-07-16 11:42 | XMS_ITS | Encounter Summary ---
Author Organization [employer] Address [address] [facility] 7 [place] [address] Care Team Providers Care Professor Of Graphic Design Name Role Phone Fide Watson MD Primary Care Provider [phone] Adriana Allen PharmD Unavailable [phone] Reason for Visit * Reason Onset Date Comments Nurse Triage 01/02/2024 Encounter Details Date Type Department Care Team ([facility] st Contact Info) Description 01/02/2024 Telephone [facility] MEDICINE [address] [place] [address] Fide Watson MD [address] [place] [address] Nurse Triage Social History Tobacco Use Types [...] PM EST Call returned to [facility]rios for triage. No answer LVM to return call to [facility] triage line. Call to Bernarda, no answer, LVM to return call to [facility] PRN. * Telephone Encounter - Mago Hayes - 01/02/2024 4:02 PM EST Symptom: Blisters and fall Outcome: Schedule an appointment to be seen within 24 hours Reason: Caller denied all higher acuity questions Back left shoulder The caller accepted this outcome Any questions to Bernarda [phone] documented in this encounter Plan of Treatment Upcoming Encounters Date Type Department Care Team (Late st Contact Info) Description 08/04/2025 11:15 AM EDT Office Visit [facility] PEDS [address] [place], [place] [phone] Fide Watson MD [address] [place], [place] [phone] 09/09/2025 11:00 AM EDT Medication Management [facility] PEDS [address] [place] [address] Adriana Allen PharmD [address] [place] [address] documented as of this encounter Visit Diagnoses Not on filedocumented in this encounter Additional Health Concerns Assessment Noted Time PHQ-9 Depression Total Score: 0 07/04/20 9:57 AM EDT documented as of this encounter Care Teams Professor Of Graphic Design Relationship Specialty Start Date End Date Fide Watson MD [address] [place] [address] PCP - General Internal Medicine 04/27/20 Adriana Allen PharmD [address] [place] [address] Pharmacist Internal Medicine 12/17/24 documented as of this encounter
--- OUTSIDE RECORDS SUMMARY | 2025-07-16 11:42 | XMS_ITS | Clinical Summary ---
Author Organization [facility] Address [address] [place] [address] Phone Care Team Providers Care Internet Network Specialist Name Role Phone Physician, Pcp Unknown Primary Care Provider Lisa vailable Encounters Date Type Department Care Team Description 07/07/2025 11:28 AM EDT - 07/07/2025 11:59 PM EDT Hospital Encounter [facility] Xray [address] [place] [address] Cough Discharge Disposition: Home or Self Care from Last 3 Months Social History Tobacco Use Types Packs/Day Years Used Date Smoking Tobacco: Never Assessed Sex and Gender Information Value Date Recorded Sex Assigned at Not on file Legal Sex Male 4:34 AM EST Gender Identity Not on file Sexual Orientation Not on file Plan of Treatment Health Maintenance Due Date Last Done Comments Diabetes: Annual GFR (Glomerular Filtration Rate) 1946 Diabetes: Annual Foot Exam 02/29/1956 Diabetes: Annual Retina Eye Exam 02/29/1956 Depression Screening 11/18/2024 COVID-19 Vaccine ( season) 2025 08/19/2024, 02/05/2023, 10/04/2021 Diabetes: Annual Urine Albumin-Creatinine Ratio (uACR) 07/07/2025 Falls Risk Assessment 07/07/2025 Hypertension/CHF/CAD Annual BMP Blood Test 07/07/2025 Medicare Annual Wellness Visit 07/07/2025 Social Influencers of Health Screening 07/07/2025 Influenza Vaccine (#1) 2025 , 08/03/2023, 09/04/2022, Additional history exists Diabetes: Blood Sugar Control Test (HGBA1C) 12/29/2025 06/28/2025, 06/09/2025 Cholesterol Screening (Lipid Panel) 01/26/2030 01/26/2025 DTaP,Tdap,and Td Vaccines (2 - Td or Tdap) 08/17/2030 08/17/2020 Hepatitis C Screening Completed 01/23/2024 Pneumococcal Vaccine: 50+ Years Completed 08/19/2024, 02/04/2020 RSV Immunization Adult Patients Completed 12/17/2024 Zoster Vaccines Completed 12/17/2024, 01/17, [...] on patient's age to complete this topic MMR Vaccines Aged Out No longer eligi ble based on patient's age to complete this topic Meningococcal ACWY Vaccine Aged Out N o longer eligible based on patient's age to complete this topic Meningococcal B Vaccine Aged Out No l onger eligible based on patient's age to complete this topic RSV Immunization Patients Under 20 months Aged Out No longer eligible based on patient's age to complete this topic Varicella Vaccines Aged Out No longer eligible based on patient's age to complete this topic Procedures Procedure Name Priority Date/Time Associated Diagnosis Comments XR CHEST 2 VIEWS Routine 07/07/2025 11:4 1 AM EDT Cough from Last 3 Months Results * XR Chest 2 Views (07/07/2025 11:41 AM EDT) Anatomical Region Laterality Modality Body Radiographic Lynn ging 07/07/2025 12:0 0 PM EDT Impressions 07/07/2025 12:03 PM EDT Mild discoid atelectasis versus linear scarring in the left midlung. The lungs are otherwise clear. Code 92392 -------- FINAL REPORT -------- Dictated By: Jose Foreman Dictated Date: 07/07/2025 12:00 ET Assigned Physician: Jose Foreman Reviewed and Electronically Signed By: Jose Foreman Signed Date: 07/07/2025 12:03 ET Workstation ID: [id number] Transcribed By: Self Edit Transcribed Date: 07/07/2025 12:00 ET Narrative 07/07/2025 12:03 PM EDT HISTORY: The patient is a 80-year-old male with cough. FINDINGS: PA and lateral radiographs of the chest, without previous for comparison, demonstrate degenerative changes and moderate kyphosis of the thoracic spine. The cardiac and mediastinal contours are within normal limits. Linear density consistent with mild discoid atelectasis versus scarring is noted in the left midlung. The lungs are otherwise clear and the costophrenic angles are sharp. Procedure Note Jose Foreman MD - 07/07/2025 HISTORY: The patient is a 80-year-old male with cough. FINDINGS: PA and lateral radiographs of the chest, without previous forcomparison, demonstrate degenerative changes and moderate kyphosis of thethoracic spine. The cardiac and mediastinal contours are within normallimits. Linear density consistent with mild discoid atelectasis versusscarring is noted in the left midlung. The lungs are otherwise clear andthe costophrenic angles are sharp. IMPRESSION: Mild discoid atelectasis versus linear scarring in the left midlung. Thelungs are otherwise clear. Code 66298 -------- FINAL REPORT -------- Dictated By: Jose Foreman Dictated Date: 07/07/2025 12:00 ET Assigned Physician: Jose Foreman Reviewed and Electronically Signed By: Jose Foreman Signed Date: 07/07/2025 12:03 ET Workstation ID: [id number] Transcribed By: Self Edit Transcribed Date: 07/07/2025 12:00 ET us Fide Watson MD IMG XR PROCEDURES Final R esult from Last 3 Months Insurance [employer] MEDICARE Care Teams Internet Network Specialist Relationship Specialty Start Date End Date Physician, Pcp Unknown PCP - General 07/07/25
--- OUTSIDE RECORDS SUMMARY | 2025-07-16 11:42 | XMS_ITS | Encounter Summary ---
Author Organization [employer] Address [address] [facility] 7 [place] [address] Care Team Providers Care Counselor Aid Name Role Phone Fide Watson MD Primary Care Provider [phone] Adriana Allen PharmD Unavailable [phone] Reason for Visit * Reason Onset Date Comments Pre Op 03/30/2024 Encounter Details Date Type Department Care Team ([facility] st Contact Info) Description 03/30/2024 Telephone [facility] MEDICINE [address] [place] [address] Fide Watson MD [address] [place] [address] Pre Op Social History Tobacco Use Types [...] day prior to. Please contact pt at [phone]. documented in this encounter Plan of Treatment Upcoming Encounters Date Type Department Care Team (Late st Contact Info) Description 08/04/2025 11:15 AM EDT Office Visit [facility] MED & PEDS [address] [place] [address] Fide Watson MD [address] [place] [address] 09/09/2025 11:00 AM EDT Medication Management [facility] MED & PEDS [address] [place] [address] Adriana Allen PharmD [address] [place] [address] documented as of this encounter Visit Diagnoses Not on filedocumented in this encounter Additional Health Concerns Assessment Noted Time PHQ-9 Depression Total Score: 0 07/04/20 23 9:57 AM EDT documented as of this encounter Care Teams Counselor Aid Relationship Specialty Start Date End Date Fide Watson MD [address] [place] [address] PCP - General Internal Medicine 04/27/20 Adriana Allen PharmD [address] [place] [address] Pharmacist Internal Medicine 12/17/24 documented as of this encounter
--- OUTSIDE RECORDS SUMMARY | 2025-07-16 11:42 | XMS_ITS | Encounter Summary ---
Author Organization [employer] Address [address] [facility] 7 [place] [address] Care Team Providers Care Coordinator Of Evaluation Name Role Phone Fide Watson MD Primary Care Provider [phone] Adriana Allen PharmD Unavailable [phone] Encounter Details Date Type Department Care Team (Late st Contact Info) Description 01/27/2025 Orders Only [facility] MEDICINE [address] [place] [address] Fide Watson MD [address] [place], [place] [phone] Dietary counseling (Primary Dx) Social History Tobacco Use Types [...] Description 08/04/2025 11:15 AM EDT Office Visit [facility] MED & PEDS [address] [place] [address] Fide Watson MD [address] [place] [address] 09/09/2025 11:00 AM EDT Medication Management [facility] MED & PEDS [address] [place] [address] Adriana Allen PharmD [address] [place] [address] documented as of this encounter Visit Diagnoses Diagnosis Dietary counseling- Primary Dietary surveillance and counseling documented in this encounter Additional Health Concerns Assessment Noted Time PHQ-9 Depression Total Score: 0 11/23/19 25 9:24 AM EST documented as of this encounter Care Teams Coordinator Of Evaluation Relationship Specialty Start Date End Date Fide Watson MD [address] [place] [address] PCP - General Internal Medicine 04/27/20 Adriana Allen PharmD [address] [place] [address] Pharmacist Internal Medicine 12/17/24 documented as of this encounter
--- OUTSIDE RECORDS SUMMARY | 2025-07-16 11:42 | XMS_ITS | Encounter Summary ---
Author Organization [employer] Address [address] [place] [address] [address] [place] [address] Care Team Providers Care Inspector Welded Parts Name Role Phone Fide Watson MD Primary Care Provider [phone] Adriana Allen PharmD Unavailable [phone] Reason for Referral * Imaging (Routine) - Closed Specialty Diagnoses / Procedures Referred By Contkeli cummins Referred To Contact Radiology Diagnoses Right upper quadrant pain Procedures CT Abdomen w/ and w/o Contrast Fide Watson MD [address] [place] [address] Phone: tel: fax: [facility] Referral ID Status Reason Start Date Expiration Date Visits Re quested Visits Authorized [id number] Closed 11/30/2024 11/30/2025 1 1 Encounter Details Date Type Department Care Team ([facility] st Contact Info) Description 11/23/2024 Orders Only [facility] MED & PEDS [address] [place] [address] Fide Watson MD [address] [place] [address] Right upper quadrant pain (Primary Dx) Social [...] AM EDT documented as of this encounter Functional Status * Over the past 2 weeks, how often have you been bothered by any of the following problems? Question Answer Date of Assessment Author Patient Health Questionnaire -2 Score 0 11/23/2024 9:24 AM Beronica Lee MA * Little interest or pleasure in doing things Answer Date of Assessment Author Not at all 11/23/2024 9:24 AM Stephanie Lee MA * Feeling down, depressed, or hopeless Answer Date of Assessment Author Not at all 11/23/2024 9:24 AM Stephanie Lee MA * Trouble falling or staying asleep, or sleeping too much Answer Date of Assessment Author Not at all 11/23/2024 9:24 AM Stephanie Lee MA * Feeling tired or having little energy Answer Date of Assessment Author Not at all 11/23/2024 9:24 AM Stephanie Lee MA * Poor appetite or overeating Answer Date of Assessment Author Not at all 11/23/2024 9:24 AM Stephanie Lee MA * Feeling bad about yourself - or that you are a failure or have let yourself or your family down Answer Date of Assessment Author Not at all 11/23/2024 9:24 AM Stephanie Lee MA * Trouble concentrating on things, such as reading the newspaper or watching television Answer Date of Assessment Author Not at all 11/23/2024 9:24 AM Stephanie Lee MA * Moving or speaking so slowly that other people could have noticed? Or the opposite - being so fidgety or restless that you have been moving around a lot more than usual. Answer Date of Assessment Author Not at all 11/23/2024 9:24 AM Stephanie Lee MA * Thoughts that you would be better off or hurting yourself in some way Answer Date of Assessment Author Not at all 11/23/2024 9:24 AM Stephanie Lee MA * Patient Health Questionnaire-9 Score Answer Date of Assessment Author 0 11/23/2024 9:24 AM Stephanie Lee MA documented as of this encounter Plan of Treatment Upcoming Encounters Date Type Department Care Team (Late st Contact Info) Description 08/04/2025 11:15 AM EDT Office Visit [facility] MED & PEDS [address] [place] [address] Fide Watson MD [address] [place] [address] 09/09/2025 11:00 AM EDT Medication Management [facility] MED & PEDS [address] [place] [address] Adriana Allen, PharmD [address] [place] [address] documented as of this encounter Procedures Procedure [...] as of this encounter Care Teams Inspector Welded Parts Relationship Specialty Start Date End Date Fide Watson MD [address] [place] [address] PCP - General Internal Medicine 04/27/20 Adriana Allen PharmD [address] [place] [address] Pharmacist Internal Medicine 12/17/24 documented as of this encounter
--- OUTSIDE RECORDS SUMMARY | 2025-07-16 11:42 | XMS_ITS | Encounter Summary ---
Author Organization [employer] Address [address] [facility] 7 [place] [address] Care Team Providers Care Svp Chief Marketing Officer Name Role Phone Fide Watson MD Primary Care Provider [phone] Adriana Allen PharmD Unavailable [phone] Encounter Details Date Type Department Care Team (Late st Contact Info) Description 09/24/2023 Orders Only [facility] CHC MED & PEDS [address] [place], [place] [phone] Fide Watson MD [address] [place] [address] Type 2 diabetes mellitus with hyperglycemia, without long-term current use of insulin ([facility]) (Primary Dx) Social History Tobacco [...] Description 08/04/2025 11:15 AM EDT Office Visit [facility] MED & PEDS [address] [place] [address] Fide Watson MD [address] [place] [address] 09/09/2025 11:00 AM EDT Medication Management [facility] MED & PEDS [address] [place] [address] Adriana Allen PharmD [address] [place] [address] documented as of this encounter Visit Diagnoses Diagnosis Type 2 diabetes mellitus with hyperglycemia, without long-term current use of insulin ([facility])- Primary documented in this encounter Additional Health Concerns Assessment Noted Time PHQ-9 Depression Total Score: 0 07/04/20 23 9:57 AM EDT documented as of this encounter Care Teams Svp Chief Marketing Officer Relationship Specialty Start Date End Date Fide Watson MD [address] [place] [address] PCP - General Internal Medicine 04/27/20 Adriana Allen PharmD [address] [place] [address] Pharmacist Internal Medicine 12/17/24 documented as of this encounter
--- OUTSIDE RECORDS SUMMARY | 2025-07-16 11:42 | XMS_ITS | Encounter Summary ---
Author Organization [employer] Address [address] [facility] 7 [place] [address] Care Team Providers Care Central Sterile Technician Name Role Phone Fide Watson MD Primary Care Provider [phone] Adriana Allen PharmD Unavailable [phone] Reason for Visit * Reason Onset Date Comments Med Refill 05/14/2025 Encounter Details Date Type Department Care Team ([facility] st Contact Info) Description 05/14/2025 Telephone [facility] MEDICINE [address] [place] [address] Fide Watson MD [address] [place] [address] Med Refill Social History Tobacco Use Types Packs/Day Years [...] encounter Miscellaneous Notes * Telephone Encounter - Janet Daugherty LPN - 05/14/2025 10:51 AM EDT Medication was sent to [facility] on 04/15/25 with 1 refill. * Telephone Encounter - Dena Webster - 05/14/2025 10:48 AM EDT TC from pt requesting medication refill. Medications needing refill : Dulaglutide (Trulicity) 1.5 MG/0.5ML solution auto-injector To be sent to: [facility] documented in this encounter Plan of Treatment Upcoming Encounters Date Type Department Care Team ([facility] st Contact Info) Description 08/04/2025 11:15 AM EDT Office Visit [facility] MED & PEDS [address] [place] [address] Fide Watson MD [address] [place] [address] 09/09/2025 11:00 AM EDT Medication Management [facility] MED & PEDS [address] [place] [address] Adriana Allen PharmD [address] [place] [address] documented as of this encounter Visit Diagnoses Not on filedocumented in this encounter Additional Health Concerns Assessment Noted Time PHQ-9 Depression Total Score: 0 11/23/19 25 9:24 AM EST documented as of this encounter Care Teams Central Sterile Technician Relationship Specialty Start Date End Date Fide Watson MD [address] [place] [address] PCP - General Internal Medicine 04/27/20 Adriana Allen, Rosa [address] [place] [address] Pharmacist Internal Medicine 12/17/24 documented as of this encounter
--- OUTSIDE RECORDS SUMMARY | 2025-07-16 11:42 | XMS_ITS | Encounter Summary ---
Author Organization [employer] Address [address] [facility] 7 [place] [address] Care Team Providers Care Agronomy Internship Name Role Phone Fide Watson MD Primary Care Provider [phone] Adriana Allen PharmD Unavailable [phone] Encounter Details Date Type Department Care Team (Late st Contact Info) Description 10/21/2024 Orders Only [facility] MED & PEDS [address] [place], [place] [phone] Fide Watson MD [address] [place] [address] Social History Tobacco Use Types Packs/Day Years [...] Description 08/04/2025 11:15 AM EDT Office Visit [facility] MED & PEDS [address] [place] [address] Fide Watson MD [address] [place] [address] 09/09/2025 11:00 AM EDT Medication Management [facility] MED & PEDS [address] [place] [address] Adriana Allen PharmD [address] [place] [address] documented as of this encounter Visit Diagnoses Not on filedocumented in this encounter Additional Health Concerns Assessment Noted Time PHQ-9 Depression Total Score: 0 07/04/20 9:57 AM EDT documented as of this encounter Care Teams Agronomy Internship Relationship Specialty Start Date End Date Fide Watson MD [address] [place] [address] PCP - General Internal Medicine 04/27/20 Adriana Allen PharmD [address] [place] [address] Pharmacist Internal Medicine 12/17/24 documented as of this encounter
[2025-07-16 15:20] LABS: Anion Gap 14 (12-20); Blood Urea Nitrogen 11 mg/dL (9-16); Calcium 9.3 mg/dL (8.4-10.2); Carbon Dioxide 27 mmol/L (22-29); Chloride 100 mmol/L (96-108); Cholesterol 129 mg/dL (<200); Estimated Glomerular Filt Rate > 60; HDL Cholesterol 33 mg/dL (>40); Potassium 3.6 mmol/L (3.3-5.1); Sodium 137 mmol/L (135-145); Triglycerides 214 mg/dL (<150)
== END 2025-07-16 11:00 | disposition home or self-care (01) ==
LOC: HO.CHCLDS 10:59
PROVIDERS: Visit Provider Internal Medicine
DX: I10 Essential (primary) hypertension (principal); E11.65 Type 2 diabetes mellitus with hyperglycemia
CPT/HCPCS: 36415; 80048; 80061